=== PATIENT | male | born 1975 | race Caucasian/White ===

== ENCOUNTER 2016-11-07 18:39 | Emergency (ER) | payer MEDICAID ==
[2016-11-07 20:05] VITALS: BP 155/82
--- NOTE | 2016-11-07 20:17 | UC ---
UC General HPI - HPI Summary HPI Summary: Pt presents with c/o sudden onset of fever and loose stools. Pt reports that he thinks he had a fever yesterday and then had 1-2 episodes of loose stols over the last 24 hours. pt does not have a fever at time of exam. - History of Current Complaint Chief Complaint: UCGeneralIllness Stated Complaint: FEVER Time Seen by Provider: 11/07/16 20:12 Hx Obtained From: Patient Onset/Duration: Sudden Onset, Lasting Hours Timing: Constant Onset Severity: Mild Current Severity: None Associated Signs & Symptoms: Positive: Diarrhea - 2 episodes in the last 24 hours, Fever - unsure temperature does not have thermometer - Allergy/Home Medications Allergies/Adverse Reactions: Allergies Allergy/AdvReac Type Severity Reaction Status Date / Time Calcium Chloride Allergy Hives Verified 11/07/16 19:56 [From Caphosol] Diphenhydramine Allergy Rash Verified 03/08/15 13:36 [From Benadryl] Penicillins Allergy Rash Verified 03/08/15 13:36 Sodium Chloride Allergy Hives Verified 11/07/16 19:56 [From Caphosol] Sodium Phosphate Allergy Hives Verified 11/07/16 19:56 [From Caphosol] Home Medications: Home Medications Diltiazem HCl 120 mg PO SEE INSTRUCTIONS 11/07/16 [History Confirmed 11/07/16] Levothyroxine TAB* [Synthroid TAB*] 88 mcg PO DAILY 11/07/16 [History Confirmed 11/07/16] Rivaroxaban TAB(*) [Xarelto 10 mg (*)] 10 mg PO DAILY 11/07/16 [History Confirmed 11/07/16] PMH/Surg Hx/FS Hx/Imm Hx Previously Healthy: Yes Endocrine History Of: Reports: Thyroid Disease Cardiovascular History Of: Reports: Cardiac Disorders, Hypertension - Surgical History Surgical History: Yes Surgery Procedure, Year, and Place: HERNIA REPAIR. [facility] - Family History Known Family History: Positive: Other - positive [facility] for URI - Social History Alcohol Use: None Substance Use Type: None Smoking Status (MU): Former Smoker Review of Systems Constitutional: Fever - resolved Skin: Negative Eyes: Negative ENT: Negative Respiratory: Negative Cardiovascular: Negative Gastrointestinal: Diarrhea Genitourinary: Negative Motor: Negative Neurovascular: Negative Musculoskeletal: Negative Neurological: Negative Psychological: Negative All Other Systems Reviewed And Are Negative: Yes Physical Exam Triage Information Reviewed: Yes Appearance: Well-Appearing, Obese Vital Signs: Initial Vital Signs Temp 97.6 F 11/07/16 20:03 Pulse 63 11/07/16 20:03 Resp 20 11/07/16 20:03 BP 155/82 11/07/16 20:03 Pulse Ox 99 11/07/16 20:03 Eye Exam: Normal Respiratory Exam: Normal Cardiovascular Exam: Normal Abdominal Exam: Other Abdomen Description: Positive: Nontender Musculoskeletal Exam: Normal Neurological Exam: Normal Psychological Exam: Normal Skin Exam: Normal Course/Dx - Differential Dx - Multi-Symptom Provider Diagnoses: acute diarrhea. fever- resolved Discharge - Discharge Plan Condition: Stable Disposition: HOME Patient Education Materials: Acute Diarrhea (ED) Referrals: Quin Porter PA [Physician Household Chores] - 2 Days (Please follow up with your PCP as needed or return to clinic) Non Staff,Doctor [Primary Care Provider] - Additional Instructions: Please follow up with your PCP regarding the elevated Blood pressure at today's visit.
== END 2016-11-07 20:40 | disposition home or self-care (01) ==
LOC: UCCORT 18:39
DX: R19.7 Diarrhea, unspecified (principal); E07.9 Disorder of thyroid, unspecified; I10 Essential (primary) hypertension; Z79.01 Long term (current) use of anticoagulants; Z87.891 Personal history of nicotine dependence; E66.9 Obesity, unspecified; Z88.0 Allergy status to penicillin; Z88.8 Allergy status to other drugs, medicaments and biological substances
CPT/HCPCS: 99211; G0463

== ENCOUNTER 2016-11-22 08:58 | Emergency (ER) | payer MEDICARE, MEDICAID ==
[2016-11-22 09:35] VITALS: BP 146/82
--- NOTE | 2016-11-22 09:41 | UC ---
Throat Pain/Nasal Janusz HPI - HPI Summary HPI Summary: 41 yr old male with a fib presents with nasal congestion, sinus pressure, sore throat for 3 days. He states his head congestion is worsening each day. He states he may have had fever and chills last evening. Denies CP, palpitations, SOB, chest pressure. - History of Current Complaint Stated Complaint: FEVER,SINUS Time Seen by Provider: 11/22/16 09:31 Hx Obtained From: Patient Onset/Duration: Gradual Onset - Allergies/Home Medications Allergies/Adverse Reactions: Allergies Allergy/AdvReac Type Severity Reaction Status Date / Time Calcium Chloride Allergy Hives Verified 11/22/16 09:36 [From Caphosol] Diphenhydramine Allergy Rash Verified 11/22/16 09:36 [From Benadryl] Penicillins Allergy Rash Verified 11/22/16 09:36 Sodium Chloride Allergy Hives Verified 11/22/16 09:36 [From Caphosol] Sodium Phosphate Allergy Hives Verified 11/22/16 09:36 [From Caphosol] PMH/Surg Hx/FS Hx/Imm Hx Previously Healthy: Yes Endocrine History Of: Reports: Thyroid Disease Cardiovascular History Of: Reports: Cardiac Disorders, Hypertension Respiratory History Of: Denies: COPD GI/ History Of: Denies: Gastroesophageal Reflux Neurological History Of: Denies: TIA - Surgical History Surgical History: Yes Surgery Procedure, Year, and Place: HERNIA REPAIR. [facility]Y - Family History Known Family History: Positive: Other - positive [facility] for URI - Social History Occupation: Employed Full-time Lives: With Family Alcohol Use: None Substance Use Type: None Smoking Status (MU): Former Smoker Review of Systems Constitutional: Fatigue Skin: Negative Eyes: Negative ENT: Ear Ache, Nasal Discharge Respiratory: Negative Cardiovascular: Negative Gastrointestinal: Negative Genitourinary: Negative Motor: Negative Neurovascular: Negative Musculoskeletal: Negative Neurological: Negative Psychological: Negative All Other Systems Reviewed And Are Negative: Yes Physical Exam Triage Information Reviewed: Yes Appearance: Well-Appearing, No Pain Distress, Well-Nourished Vital Signs Reviewed: Yes Eye Exam: Normal ENT Exam: Normal ENT: Positive: Nasal congestion, Nasal drainage, TMs normal, Other: - bilateral frontal sinus tenderness to palpation. Negative: Tonsillar swelling, Tonsillar exudate Dental Exam: Normal Neck exam: Normal Neck: Positive: 1 Respiratory Exam: Normal Cardiovascular Exam: Normal Cardiovascular: Positive: No Murmur, Other: - irreg irreg Abdominal Exam: Normal Musculoskeletal Exam: Normal Neurological Exam: Normal Psychological Exam: Normal Skin Exam: Normal Throat Pain/Nasal Course/Dx - Differential Dx/Diagnosis Differential Diagnosis/HQI/PQRI: Sinusitis Provider Diagnoses: Sinusitis Discharge - Discharge Plan Condition: Good Disposition: HOME Prescriptions: Cefdinir [Cefdinir 300 MG CAP] 300 mg PO BID #20 cap Patient Education Materials: Sinusitis (ED) Referrals: Quin Porter PA [Primary Care Provider] - 3 Days Additional Instructions: WE DISCUSSED YOU LIKELY HAVE A VIRAL SINUS INFECTION. IT TAKES TIME TO GET BETTER. IF YOUR SYMPTOMS PERSIST OR WORSEN OVER THE NEXT 2-3 DAYS THEN AT THAT TIME YOU MAY START THE ANTIBIOTIC THAT WE PRESCRIBED.
== END 2016-11-22 10:00 | disposition home or self-care (01) ==
LOC: UCCORT 08:58
DX: J32.9 Chronic sinusitis, unspecified (principal); I48.91 Unspecified atrial fibrillation; I10 Essential (primary) hypertension; Z87.891 Personal history of nicotine dependence; Z88.0 Allergy status to penicillin
CPT/HCPCS: 99212; G0463

== ENCOUNTER 2017-04-13 19:18 | Emergency (ER) | payer MEDICARE, MEDICAID ==
--- NOTE | 2017-04-13 19:32 | UC ---
Back Pain HPI - HPI Summary HPI Summary: 41 YEAR OLD MALE PRESENTS WITH COMPLAINS OF LOWER BACK PAIN. - History of Current Complaint Stated Complaint: BACK PAIN Time Seen by Provider: 04/13/17 19:29 Hx Obtained From: Patient Onset/Duration: Gradual Onset, Lasting Weeks Timing: Intermittent Severity Initially: Moderate Severity Currently: Moderate Pain Scale Used: 0-10 Numeric - 7 Character: Sharp Aggravating: Movement, Lifting, Bending Alleviating: Rest - Risk Factors AAA Risk Factors: Negative TAD Risk Factors: Negative - Allergies/Home Medications Allergies/Adverse Reactions: Allergies Allergy/AdvReac Type Severity Reaction Status Date / Time Calcium Chloride Allergy Hives Verified 04/13/17 19:38 [From Caphosol] Diphenhydramine Allergy Rash Verified 04/13/17 19:38 [From Benadryl] Penicillins Allergy Rash Verified 04/13/17 19:38 Sodium Chloride Allergy Hives Verified 04/13/17 19:38 [From Caphosol] Sodium Phosphate Allergy Hives Verified 04/13/17 19:38 [From Caphosol] Home Medications: Home Medications Oxybutynin TAB* [Ditropan TAB*] 5 mg PO DAILY 04/13/17 [History Confirmed ] Sertraline* [Zoloft*] 25 mg PO DAILY 04/13/17 [History Confirmed 04/13/17] Valsartan TAB* [Diovan TAB*] 40 mg PO DAILY 04/13/17 [History Confirmed 04/13/17 ] PMH/Surg Hx/FS Hx/Imm Hx Previously Healthy: Yes - Surgical History Surgical History: Yes Surgery Procedure, Year, and Place: HERNIA REPAIR. [facility] - Family History Known Family History: Positive: Other - positive [facility] for URI - Social History Alcohol Use: None Substance Use Type: None Smoking Status (MU): Former Smoker Review of Systems Constitutional: Negative Skin: Negative Eyes: Negative ENT: Negative Respiratory: Negative Cardiovascular: Negative Gastrointestinal: Negative Genitourinary: Negative Motor: Negative Neurovascular: Negative Musculoskeletal: Other: - LOWE BACK PAIN Neurological: Negative Psychological: Negative All Other Systems Reviewed And Are Negative: Yes Physical Exam Triage Information Reviewed: Yes Appearance: No Pain Distress Vital Signs Reviewed: Yes Eye Exam: Normal ENT Exam: Normal Dental Exam: Normal Neck exam: Normal Neck: Positive: 1 Respiratory Exam: Normal Cardiovascular Exam: Normal Abdominal Exam: Normal Musculoskeletal: Positive: Other: - LOW BACK PAIN Neurological Exam: Normal Psychological Exam: Normal Skin Exam: Normal Back Pain Course/Dx - Differential Dx/Diagnosis Provider Diagnoses: LOW PARASPINAL LUMBAR PAIN Discharge - Discharge Plan Condition: Stable Disposition: HOME Prescriptions: Acetaminophen [Tylenol] 325 mg PO Q6H PRN #100 cap PRN Reason: Pain Cyclobenzaprine HCl [Flexeril 5 mg (NF)] 5 mg PO BID PRN #30 tab PRN Reason: Spasms - Back Patient Education Materials: Low Back Strain (ED), Acute Low Back Pain (ED) Referrals: Gabriele Jamil MD [Medical Doctor] - Quin Porter PA [Primary Care Provider] -
[2017-04-13 19:38] VITALS: BP 124/54
--- NOTE | 2017-04-13 20:19 | RAD ---
Indication: Low back pain. 5 views of the lumbar spine demonstrates disc space narrowing at L2-L3 with endplate changes. No fractures identified. IMPRESSION: Degenerative disc disease at L2-L3 without compression fracture.
[2017-04-13] MEDS ORDERED: Acetaminophen TAB* 325 MG PO ONE (20:33)
== END 2017-04-13 20:39 | disposition home or self-care (01) ==
LOC: UCCORT 19:18
DX: M54.2 Cervicalgia (principal); M51.37 Other intervertebral disc degeneration, lumbosacral region; Z87.891 Personal history of nicotine dependence
CPT/HCPCS: 72110; 99212; A9270-GY; G0463

== ENCOUNTER 2017-10-04 15:22 | Emergency (ER) | payer MEDICARE, MEDICAID ==
[2017-10-04 15:49] VITALS: BP 162/99
--- NOTE | 2017-10-04 15:58 | UC ---
Skin Complaint HPI - HPI Summary HPI Summary: skin rash right lower abdominal fold x 1 day + area is red, itchy no fever, no chills - History of Current Complaint Chief Complaint: UCSkin Time Seen by Provider: 10/04/17 15:35 Stated Complaint: SKIN COMPLAINT Hx Obtained From: Patient Onset/Duration: Gradual Onset, Lasting Days - 1, Still Present Timing: Constant Onset Severity: Moderate Current Severity: Moderate Pain Intensity: 0 Location: Discrete - right lower abdominal fold Character: Pruritus, Redness Aggravating Factor(s): Nothing Alleviating Factor(s): Nothing Associated Signs & Symptoms: Negative: Nausea, Vomiting, Numbness, Fever, Chills , Chest Pain, Tenderness, Red Streaks - Allergy/Home Medications Allergies/Adverse Reactions: Allergies Allergy/AdvReac Type Severity Reaction Status Date / Time diphenhydramine Allergy Rash Verified 10/04/17 15:37 [From Benadryl] Penicillins Allergy Rash Verified 10/04/17 15:37 saliva substitute Allergy Hives Verified 10/04/17 15:37 combination no.2 [From Caphosol] Home Medications: Home Medications Acetaminophen [Extra Strength Non-Aspirin] 500 mg PO Q6H PRN 10/04/17 [History Confirmed 10/04/17] Cholecalciferol (Vitamin D3) [D3] 1 tab PO DAILY 10/04/17 [History Confirmed ] Cyclobenzaprine HCl [Flexeril 5 mg (NF)] 5 mg PO Q8H PRN 10/04/17 [History Confirmed 10/04/17] Sertraline* [Zoloft*] 25 mg PO DAILY 10/04/17 [History Confirmed 10/04/17] Review of Systems Constitutional: Negative Skin: Rash Eyes: Negative ENT: Negative Respiratory: Negative Cardiovascular: Negative Gastrointestinal: Negative Is Patient Immunocompromised?: No All Other Systems Reviewed And Are Negative: Yes PMH/Surg Hx/FS Hx/Imm Hx Cardiovascular History: Hypertension, Atrial Fibrillation - Surgical History Surgical History: Yes Surgery Procedure, Year, and Place: HERNIA REPAIR. [facility] - Family History Known Family History: Positive: Hypertension, Other - positive [facility] for URI - Social History Alcohol Use: Rare Substance Use Type: None Smoking Status (MU): Former Smoker When Did the Patient Quit Smoking/Using Tobacco: 2013 Physical Exam Triage Information Reviewed: Yes Appearance: Well-Appearing, No Pain Distress, Obese Vital Signs: Initial Vital Signs Temp 97.9 F 10/04/17 15:44 Pulse 78 10/04/17 15:44 Resp 18 10/04/17 15:44 BP 162/99 10/04/17 15:44 Pulse Ox 99 10/04/17 15:44 Vital Signs Reviewed: Yes Eye Exam: Normal Eyes: Positive: Conjunctiva Clear ENT: Positive: Normal ENT inspection, Hearing grossly normal, Pharynx normal Neck: Positive: Supple, Nontender, No Lymphadenopathy Respiratory: Positive: Chest non-tender, Lungs clear, Normal breath sounds, No respiratory distress Cardiovascular: Positive: RRR, No Murmur, Pulses Normal Skin: Positive: rashes - macular / erythema right lower abdominal fold mild tenderness, no discharge Course/Dx - Diagnoses Provider Diagnoses: skin yeast infection Discharge - Discharge Plan Condition: Stable Disposition: HOME Prescriptions: Ketoconazole 2 % CREAM (NF) [Nizoral 2% CREAM (NF)] 1 applic TOPICAL BID #60 gm Patient Education Materials: Skin Yeast Infection (ED) Referrals: Non Staff,Doctor [Primary Care Provider] - 7 Days
== END 2017-10-04 16:01 | disposition home or self-care (01) ==
LOC: UCCORT 15:22
DX: B37.2 Candidiasis of skin and nail (principal); I10 Essential (primary) hypertension; Z87.891 Personal history of nicotine dependence
CPT/HCPCS: 99212; G0463

== ENCOUNTER 2018-01-07 18:07 | Emergency (ER) | payer MEDICARE, MEDICAID ==
--- OUTSIDE RECORDS SUMMARY | 2018-01-07 18:18 | XMS REPORT ---
:1975 External Reference #:[id number] Author Organization [facility] Address [address], [address] [place] [address] Phone [phone] Care Team Providers Name Role Phone Quin Porter RPAC Care Team Information Speech And Language Specialist Unavailable Quin Porter RPAC Primary Care Physician Unavailable Payers Type Date Identification Numbers Payment Provider Subscriber Medicare Primary Policy Number: [id number] Medicare Scott Costello PayID: [id number] [address] [place] [address] Medicaid Policy Number: [id number] Medicaid Scott Costello PayID: [id number] [address] [place] [address] Problems Date Description Provider Status Onset: 03/05/2015 Atrial fibrillation Akosua Eubanks M.D. Active Note: permanent Onset: 07/15/2016 Left atrial enlargement ALYSON Grier Active Onset: 03/05/2015 Dyspnea Akosua Eubanks M.D. Active Onset: 03/05/2015 Extreme obesity with alveolar Akosua Eubanks M.D. Active hypoventilation Onset: 03/26/2015 Chronic obstructive lung disease Paradise High PA-C Active Note: O2 2-4L with c-pap Onset: 03/26/2015 Anxiety state Paradise High PA-C Active Note: Depression Onset: 03/26/2015 Seborrheic dermatitis Paradise High PA-C Active Onset: 03/26/2015 Obstructive sleep apnea syndrome Paradise High PA-C Active Note: BiPAP Onset: 03/26/2015 Gastroparesis syndrome Paradise High PA-C Active Note: study 12/2012 Onset: 03/26/2015 History of thromboembolism of vein KENAN Pastor Active Note: (L)UE DVT 2011 after a PICC Onset: 03/26/2015 Hypothyroidism Paradise High PA-C Active Onset: 03/26/2015 Gastroesophageal reflux disease Paradise High PA-C Active Note: upper to D3 (Bx x1) 2012 Onset: 03/26/2015 Morbid obesity Paradise High PA-C Active Onset: 04/16/2015 Degeneration of lumbar Quin Porter [facility] Active intervertebral disc Note: L2-L3 Onset: 06/20/2015 Hypercoagulability state [facility] Active Note: 2 thrombotic episodes > LUE & PE Onset: 03/10/2016 Degenerative joint disease involving Quin Porter [facility] Active multiple joints Note: ankle,knee,hip Onset: 05/15/2016 Gingivitis Quin Porter [facility] Active Onset: 07/15/2016 H/O: pulmonary embolus [facility] Active Note: 2013 while recovering from leg fx Onset: 05/31/2017 Hernia of anterior abdominal wall Quin [facility] Active Note: large, surgery under consideration Onset: 11/01/2017 Essential hypertension Bonifacio Ferreira MD Active Onset: 11/01/2017 Persistent atrial fibrillation Bonifacio Ferreira MD Active Onset: 12/02/2017 Body mass index 40+ - severely obese Bonifacio Peguero MD Active Family History Date Family Member(s) Problem(s) Comments General Non Contributory Father CAD Mother Asthma Grandfather Stroke Grandfather Heart Attack Uncle Diabetes Social History Type Date Description Comments Marital Status Lives With 02/2015 [facility] Lives With room mate Diet Patient is on a low carb diet 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 Cigarette Use 1995 Former Cigarette Smoker X 1 YEAR Smokeless Tobacco Never Used Smokeless Tobacco ETOH Use Rarely consumes alcohol Smoking Patient is a former smoker QUIT 1995 Recreational Drug Use Denies Drug Use Daily Caffeine Current Caffeine User 2 -3 cups coffee daily 2-3 glasses ice tea daily Exercise Type/Frequency Exercises regularly Walks daily for weight loss Allergies, Adverse Reactions, Alerts Date Description Reaction Status Severity Comments 01/05/2014 Penicillins rash active hives 01/05/2014 Diphenhydramine rash active hives 09/06/2012 Cefazolin Sodium active Medications Medication Date Status Form Strength Qnty SIG Indications Ordering Provider Elocon 01/04 Active Cream 0.1% 50gm Thin layer S50.861A to insect David, bites tid M.D. Bipap Machine 12/20 Active 1units BiPAP/Bile patsy Hernandez, Machine M.D. replacemen t, auto adjust [16-10cm], heated/hum idified, with supplies Cyclobenzaprine 08/27 Active Tablets 10mg 60tabs take 1 Frandy HCL tablet Hernandez, every 8 M.D. hours for muscle spasm as needed, may use 2 tabs every night at bedtime Loratadine 07/19 Active Tablets 10mg 30tabs take one J20.9 tablet by Hernandez, mouth M.D. every day as needed for congestion /allergies Hydrocortisone 03/30 Active Cream 2.5% 30gm thin layer B37.9 to rash Hernandez, three-four M.D. times a day for itchy rash Vitamin D3 07/24 Active Tablets 1000Unit 90tabs Take One Tablet By Hernandez, Mouth M.D. Every Day Thera-M 03/10 Active Tablets 90tabs take one Frandy tablet by Hernandez, mouth M.D. every day Valsartan 12/02 Active Tablets 160mg 90tabs take one I10 Frandy tablet by Hernandez, mouth M.D. every morning with diltiazem Oxybutynin 09/13 Active Tablets 5mg 90tabs take one N39.42 Frandy Chloride ER /2015 ER 24HR tablet by Hernandez, mouth M.D. every day Acetaminophen 04/10 Active Tablets 500mg 60tabs 1-2 tabs Frandy Extra Strength /2014 by mouth Hernandez, every 6 M.D. hours as needed for pain ::: max dose is 6 tabs in 24 hours Xarelto 04/01 Active Tablets 20mg 90tabs 1 by mouth Frandy every Hernandez, evening M.D. with dinner Diltiazem HCL 02/16 Active Tablets 120mg 90tabs take two Frandy tablets by David, mouth M.D. every morning and 1 tablet by mouth every evening Hydrochlorothiazi Active Capsules 12.5mg 90caps 1 cap by Frandy mouth David, every in M.D. the morning Sertraline HCL Active Tablets 100mg 90tabs 1 by mouth Frandy every day Dviya Hernandez Levothyroxine Active Tablets 75mcg 90tabs take one Frandy Sodium tablet by David, mouth M.D. every day Sulfamethoxazole/ 07/19 Hx Tablets 800-160mg 20tabs take one 0.9 [facility] Trimethoprim tablet by David, - mouth M.D. 08/17 twice a day with food Benzonatate 07/19 Hx Capsules 200mg 30caps 1 cap by 0.9 Frandy mouth David, - three M.D. 08/27 times a day as needed cough Robitussin Chest 07/19 Hx Syrup 100mg/5ML 237ml 10 ml po q J20.9 Frandy Congestion 4 hr for David, - cough M.D. 08/27 Cyclobenzaprine 04/12 Hx Tablets 5mg take one tablet by David, - mouth at M.D. 08/27. Nystatin 03/30 Hx Cream [id number] 30gm thin layer B37.9 t/GM to David, - affected M.D. 07/19 area times a day Elocon 12/14 Hx Cream 0.1% 50gm Thin layer to insect David, bites tid M.D. Enoxaparin Sodium 07/15 Hx Solution 120mg/0.8 2.4ml 120mg sq q I48.1 Ryan Wright /2015 ML day on Leonel MERCHANT - 07/30, 08/04 07/31, 08/01/16 C-Pap Supplies 01/14 Hx Tubing, G47.33 Ryan Wright /2015 hose, and Leonel MERCHANT - mask For 04/24 nightly /2017 use Diltiazem HCL CD 09/13 Hx Caps ER 360mg 30caps 1 cap by I10 Ryan Wright /2015 24HR mouth Leonel MERCHANT - every day 09/13 Aripiprazole 08/27 Hx Tablets 5mg 30tabs 1 tab Ryan Wright /2015 every day Leonel MERCHANT Multivital 08/21 Hx Tablets 90tabs 1 by mouth Ryan Wright every day Leonel MERCHANT - 05/15 Robitussin DM 06/20 Hx Syrup 100-10mg/ 237ml 2 tsp by R05 Ryan Wright /2014 5ML mouth Leonel MERCHANT - every 4 09/13 hours as needed Sudafed 06/20 Hx Tablets 30mg 60tabs 1-2 tabs J06.9 Ryan Wright by mouth Leonel MERCHANT - every 4 04/24 hours as needed nasal congestion Vitamin D3 05/10 Hx Tablets 1000Unit 90tabs Take One Ryan Wright Tablet By Leonel MERCHANT - Mouth 05/15 Elocon 04/16 Hx Cream 0.1% 45gm Thin layer 698.8 Ryan Wright to itchy Leonel MERCHANT - rash bid 09/15 Folic Acid 04/15 Hx Tablets 1mg 90tabs 1 by mouth Ryan Wright every day Leonel MERCHANT - 08/21 C-Pap Supplies 04/11 Hx QS for Ryan Wright nightly Leonel DO - use ... 04/25 dx: 278. C-Pap Supplies 04/11 Hx For Ryan Wright nightly Leonel DO - use ::: 06/20 dx: 278. C-Pap Supplies 04/06 Hx OneSet for Ryan Wright nightly Leonel DO - use ::: 04/26 dx: 278. Warfarin Sodium 03/29 Hx Tablets 4mg 30tabs 1 by mouth Ryan Wright every day Leonel MERCHANT - 04/03 Zyrtec Allergy 03/14 Hx Capsules 10mg 30caps 1 cap (or 919.4 Ryan Wright tab) by Leonel MERCHANT - mouth 09/15 evening for itching Hydrocortisone 03/14 Hx Lotion 1% 114gm Thin layer Ryan Wright to rash q Leonel DO - 4-6 hrs 04/16 Cyproheptadine 03/11 Hx Tablets 4mg 30tabs 1 tab by 919.4 Ryan Wrgiht mouth Leonel DO - three 03/14 times a day for itching Abilify 02/16 Hx Tablets 5mg 30tabs 1 tab Ryan Wright /2014 every day Leonel MERCHANT - 08/27 Zoloft 00/ Hx Tablets 1 by mouth Unknown /0000 every day - 03/04 Aspirin Ec 00 Hx Tablets 325mg 1 by mouth Unknown /0000 DR every day - 04/03 Vitamin B-12 00 Hx Tablets 1 by mouth Unknown /0000 Sub every day - 04/24 Nyamyc Hx Powder [id number] [place], /0000 t/GM Arun Alonso, DO 04/16 Warfarin Sodium Hx Tablets 1mg [place], /0000 Arun Alonso, DO 03/04 Warfarin Sodium 00 Hx Tablets 3mg [place], /0000 Arun Alonso, DO 03/04 Warfarin Sodium 0000 Hx Tablets 9mg since [place], /0000 07/2014 Arun Alonso, DO 03/29 Tamiflu Hx Capsules 75mg [place], /0000 Arun Alonso, DO 03/04 Ibuprofen Hx Tablets 600mg Robenstei /0000 Jazz coello, - DO 03/11 Prednisone 00 Hx Tablets 20mg 1 po q Renetta, , cynthia Banks, - dose 03/12 Sulfamethoxazole/ 0000 Hx Tablets 800-160mg 1 by mouth Unknown Trimethoprim DS /0000 twice a - day 05/09 Mapap 00 Hx Tablets 325mg Take One Unknown /0000 Tablet By - Mouth 04/24 Every Hours as Needed For Pain Immunizations CPT Code Status Date Vaccine Lot # [id number] Given 04/21/2017 Influenza Virus Vaccine, Quadrivalent, Slit Virus, Im Use [id number] Given 05/15/2016 Influenza Vaccine (Fluzone) Age 3 And Older [id number] Given 06/20/2015 Influenza Vaccine (Fluzone) Age 3 And Older [id number] Vital Signs Date Vital Result Comment 01/04/2018 BP Systolic Sitting Left Arm 114 mmHg BP Diastolic Sitting Left Arm 74 mmHg Heart Rate 74 /min Respiratory Rate 18 /min Height 71.50 inches 5'11.50" [place] body weight in kilograms 79 O2 % BldC Oximetry 98 % ra 12/20/2017 BP Systolic 138 mmHg BP Diastolic 80 mmHg Height 71.50 inches 5'11.50" Weight 501.00 lb BMI (Body Mass Index) 68.9 kg/m2 BSA (Body Surface Area) 3.13 m2 [place] body weight in kilograms 79 12/02/2017 BP Systolic Sitting Left Arm 140 mmHg BP Diastolic Sitting Left Arm 80 mmHg Heart Rate 70 /min Respiratory Rate 18 /min Height 71.50 inches 5'11.50" Weight 498.00 lb BMI (Body Mass Index) 68.5 kg/m2 BSA (Body Surface Area) 3.12 m2 [place] body weight in kilograms 79 09/23/2017 BP Systolic Sitting Right Arm 118 mmHg (extra large cuff) BP Diastolic Sitting Right Arm 80 mmHg (extra large cuff) Heart Rate 71 /min Height 71.50 inches 5'11.50" Weight 492.00 lb BMI (Body Mass Index) 67.7 kg/m2 BSA (Body Surface Area) 3.11 m2 [place] body weight in kilograms 79 O2 % BldC Oximetry 97 % ra 07/19/2017 BP Systolic 144 mmHg BP Diastolic 90 mmHg Body Temperature 96.7 F Heart Rate 61 /min Respiratory Rate 18 /min Height 71.50 inches 5'11.50" Weight 477.00 lb BMI (Body Mass Index) 65.6 kg/m2 BSA (Body Surface Area) 3.07 m2 [place] body weight in kilograms 79 O2 % BldC Oximetry 94 % 05/31/2017 BP Systolic Sitting Right Arm 118 mmHg BP Diastolic Sitting Right Arm 68 mmHg Heart Rate 56 /min Respiratory Rate 24 /min Height 71.50 inches 5'11.50" Weight 476.00 lb BMI (Body Mass Index) 65.5 kg/m2 BSA (Body Surface Area) 3.06 m2 [place] body weight in kilograms 79 O2 % BldC Oximetry 98 % ra 04/21/2017 BP Systolic Sitting Left Arm 108 mmHg BP Diastolic Sitting Left Arm 62 mmHg Heart Rate 59 /min Height 71.50 inches 5'11.50" Weight 456.00 lb BMI (Body Mass Index) 62.7 kg/m2 BSA (Body Surface Area) 3.01 m2 [place] body weight in kilograms 79 O2 % BldC Oximetry 93 % ra 03/30/2017 BP Systolic Sitting Right Arm 122 mmHg BP Diastolic Sitting Right Arm 76 mmHg Heart Rate 64 /min Respiratory Rate 24 /min Height 71.50 inches 5'11.50" Weight 454.00 lb BMI (Body Mass Index) 62.4 kg/m2 BSA (Body Surface Area) 3.00 m2 [place] body weight in kilograms 79 O2 % BldC Oximetry 98 % ra 01/29/2017 BP Systolic Sitting Right Arm 140 mmHg BP Diastolic Sitting Right Arm 80 mmHg Height 71.50 inches 5'11.50" Weight 464.25 lb BMI (Body Mass Index) 63.8 kg/m2 BSA (Body Surface Area) 3.03 m2 [place] body weight in kilograms 79 09/15/2016 BP Systolic Sitting Right Arm 124 mmHg BP Diastolic Sitting Right Arm 76 mmHg Height 71.50 inches 5'11.50" Weight 462.12 lb BMI (Body Mass Index) 63.5 kg/m2 BSA (Body Surface Area) 3.03 m2 07/15/2016 BP Systolic Sitting Right Arm 136 mmHg BP Diastolic Sitting Right Arm 70 mmHg Heart Rate 94 /min Respiratory Rate 20 /min Height 71.50 inches 5'11.50" Weight 475.00 lb BMI (Body Mass Index) 65.3 kg/m2 BSA (Body Surface Area) 3.06 m2 O2 % BldC Oximetry 97 % 06/26/2016 BP Systolic Sitting Right Arm 132 mmHg L wrist BP Diastolic Sitting Right Arm 74 mmHg L wrist Height 71.50 inches 5'11.50" Weight 475.38 lb BMI (Body Mass Index) 65.4 kg/m2 BSA (Body Surface Area) 3.06 m2 05/15/2016 BP Systolic Sitting Right Arm 134 mmHg L wrist BP Diastolic Sitting Right Arm 72 mmHg L wrist Height 71.50 inches 5'11.50" Weight 488.00 lb BMI (Body Mass Index) 67.1 kg/m2 BSA (Body Surface Area) 3.10 m2 03/02/2016 BP Systolic Sitting Right Arm 112 mmHg BP Diastolic Sitting Right Arm 68 mmHg Height 71.50 inches 5'11.50" Weight 500.31 lb BMI (Body Mass Index) 68.8 kg/m2 BSA (Body Surface Area) 3.13 m2 02/13/2016 BP Systolic 138 mmHg R wrist BP Diastolic 82 mmHg R wrist Height 71.50 inches 5'11.50" Weight 515.00 lb BMI (Body Mass Index) 70.8 kg/m2 BSA (Body Surface Area) 3.17 m2 12/03/2015 BP Systolic 140 mmHg Right Forearm BP Diastolic 96 mmHg Right Forearm Body Temperature 96.6 F Heart Rate 67 /min Respiratory Rate 20 /min Height 71.50 inches 5'11.50" O2 % BldC Oximetry 97 % 11/07/2015 BP Systolic 238 mmHg BP Diastolic 82 mmHg Height 71.50 inches 5'11.50" Weight 500.00 lb 500 + BMI (Body Mass Index) 68.8 kg/m2 BSA (Body Surface Area) 3.13 m2 09/13/2015 BP Systolic Sitting Left Arm 152 mmHg BP Diastolic Sitting Left Arm 82 mmHg Body Temperature 97.3 F Heart Rate 122 /min Height 71.50 inches 5'11.50" O2 % BldC Oximetry 97 % 06/20/2015 BP Systolic 118 mmHg BP Diastolic 72 mmHg Body Temperature 98.7 F Heart Rate 68 /min Height 71.50 inches 5'11.50" O2 % BldC Oximetry 96 % 04/16/2015 BP Systolic 122 mmHg BP Diastolic 68 mmHg Body Temperature 96.8 F Heart Rate 76 /min Respiratory Rate 22 /min Height 71.50 inches 5'11.50" Weight 500.00 lb BMI (Body Mass Index) 68.8 kg/m2 BSA (Body Surface Area) 3.13 m2 O2 % BldC Oximetry 94 % Ra 03/11/2015 BP Systolic 140 mmHg BP Diastolic 70 mmHg Height 71.50 inches 5'11.50" Weight 500.00 lb BMI (Body Mass Index) 68.8 kg/m2 BSA (Body Surface Area) 3.13 m2 03/05/2015 BP Systolic 122 mmHg BP Diastolic 72 mmHg Body Temperature 97.6 F Heart Rate 70 /min Height 71.50 inches 5'11.50" Weight 500.00 lb over 500 per patient BMI (Body Mass Index) 68.8 kg/m2 BSA (Body Surface Area) 3.13 m2 O2 % BldC Oximetry 91 % Ra Results Test Date Test Result H/L Range Note CBS W/Automated Diff 09/23/2017 White Blood Count 10.7 K/uL High 3.4-10.5 1 Red Blood Count 4.14 M/uL Low 4.20-5.80 1 Hemoglobin 13.9 gm/dL 12.8-17.0 1 Hematocrit 41.6 % 38.0-48.0 1 Mean Cell Volume 100.5 fl High 80.0-96.0 1 Mean Corpuscular HGB 33.6 pg High 27.0-33.0 1 Mean Corpuscular HGB Conc 33.4 g/dL 31.7-36.0 1 Platelet Count 269 K/uL 155-360 1 Red Cell Distri Width SD 44.9 fl 36-51 1 Red Cell Distri Width %CV 12.5 % 11.6-15.8 1 Mean Platelet Volume 11.6 fL High 6.6-10.6 1 Neut% 67.0 % 33.0-73.0 1 Lymph % 17.9 % Low 20.0-42.0 1 Jennings % 12.3 % High 0.0-10.0 1 Eo% 2.4 % 0.0-6.6 1 Bas% 0.4 % 0.0-1.1 1 Neut# 7.18 K/uL High 1.8-7.0 1 Lymph # 1.92 K/uL 1.0-4.0 1 Jennings # 1.32 K/uL High 0.0-0.8 1 Eos # 0.26 K/uL 0.0-0.5 1 Baso # 0.04 K/uL 0.0-0.1 1 Comprehensive Metabolic Panel 09/23/2017 Glucose 93 mg/dL 74-106 1 BUN 11 mg/dL 7-18 1 Creatinine 1.0 mg/dL 0.6-1.3 1 Glom Filtration Rate, Estimate >60 mL/min >60 1 If >60 mL/min >60 1, 2 BUN/Creat 11.0 ratio 1 Sodium 141 mmol/L 136-145 1 Potassium 3.9 mmol/L 3.5-5.1 1 Chloride 104 mmol/L 98-107 1 Carbon Dioxide 32 mmol/L 21-32 1 Anion Gap 5 mEq/L Low 8-16 1 Calcium 8.8 mg/dL 8.5-10.1 1 Total Protein 7.6 g/dL 6.4-8.2 1 Albumin 3.6 g/dL 3.4-5.0 1 Globulin 4.0 g/dL 1.9-4.3 1 Alb/Glob 0.9 ratio 1 Bilirubin,Total 0.5 mg/dL 0.2-1.0 1 Sgot/Ast 15 U/L 15-37 1 SGPT/Alt 23 U/L 12-78 1 Alkaline Phosphatase 115 U/L 45-117 1 Glycohemoglobin A1c 09/23/2017 Glycohemoglobin (A1c) 5.0 % 4.2-6.3 1, 3 eAG 97 mg/dL 1 Laboratory test 09/23/2017 Thyroid Stim Hormone 3.04 uIU/mL 0.30-4.20 1 finding Slide Review 09/23/2017 Slide Review . 1, 4 Serum or plasma 03/30/2017 Serum or plasma 3.9 3.4-5.0 albumin measurement albumin measurement (mass/volume) (mass/volume) Serum carbon dioxide 03/30/2017 Serum carbon dioxide 26 21-32 measurement measurement RDW RBC Auto-Rto 03/30/2017 RDW RBC Auto-Rto 13.3 11.6-15.8 RDW RBC Auto 03/30/2017 RDW RBC Auto 46.7 36-51 Potassium SerPl-sCnc 03/30/2017 Potassium SerPl-sCnc 3.8 3.5-5.1 Neutrophils/leuk NFr 03/30/2017 Neutrophils/leuk NFr 70.6 33.0-73.0 Bld Auto Bld Auto Neutrophils # Bld Auto 03/30/2017 Neutrophils # Bld Auto 6.72 1.8-7.0 Monocytes/leuk NFr Bld 03/30/2017 Monocytes/leuk NFr Bld 7.2 0.0-10.0 Auto Auto Lymphocytes/leuk NFr 03/30/2017 Lymphocytes/leuk NFr 19.7 Low 20.0-42.0 Bld Auto Bld Auto Globulin Ser Calc-mCnc 03/30/2017 Globulin Ser Calc-mCnc 4.0 1.9-4.3 Serum or plasma 03/30/2017 Serum or plasma 105 45-117 alkaline phosphatase alkaline phosphatase measurement ( measurement (enzymatic activity/volume) Serum or plasma 03/30/2017 Serum or plasma 19 15-37 aspartate aspartate aminotransferase aminotransferase measure measurement (enzymatic activity/volume) Serum or plasma 03/30/2017 Serum or plasma 8.9 8.5-10.1 calcium measurement calcium measurement (mass/volume) (mass/volume) Serum or plasma 03/30/2017 Serum or plasma 1.0 0.6-1.3 creatinine measurement creatinine measurement (mass/volum (mass/volume) Serum or plasma 03/30/2017 Serum or plasma 84 74-106 glucose measurement glucose measurement (mass/volume) (mass/volume) Serum or plasma 03/30/2017 Serum or plasma 7.9 6.4-8.2 protein measurement protein measurement (mass/volume) (mass/volume) Serum or plasma total 03/30/2017 Serum or plasma total 0.6 0.2-1.0 bilirubin measurement bilirubin measurement (mass/ (mass/volume) Serum or plasma urea 03/30/2017 Serum or plasma urea 12 7-18 nitrogen measurement nitrogen measurement (mass/vo (mass/volume) Serum sodium 03/30/2017 Serum sodium 139 136-145 measurement measurement WBC # Bld Auto 03/30/2017 WBC # Bld Auto 9.5 3.4-10.5 Comprehensive 03/30/2017 Glucose 84 mg/dL 74-106 5 Metabolic Panel BUN 12 mg/dL 7-18 5 Creatinine 1.0 mg/dL 0.6-1.3 5 Glom Filtration Rate, Estimate >60 mL/min >60 5 If >60 mL/min >60 5, 6 BUN/Creat 12.0 ratio 5 Sodium 139 mmol/L 136-145 5 Potassium 3.8 mmol/L 3.5-5.1 5 Chloride 105 mmol/L 98-107 5 Carbon Dioxide 26 mmol/L 21-32 5 Anion Gap 8 mEq/L 8-16 5 Calcium 8.9 mg/dL 8.5-10.1 5 Total Protein 7.9 g/dL 6.4-8.2 5 Albumin 3.9 g/dL 3.4-5.0 5 Globulin 4.0 g/dL 1.9-4.3 5 Alb/Glob 1.0 ratio 5 Bilirubin,Total 0.6 mg/dL 0.2-1.0 5 Sgot/Ast 19 U/L 15-37 5 SGPT/Alt 26 U/L 12-78 5 Alkaline Phosphatase 105 U/L 45-117 5 Laboratory test finding 03/30/2017 Thyroid Stim Hormone 2.90 uIU/mL 0.30- 4.20 5 CBS W/Automated Diff 03/30/2017 White Blood Count 9.5 K/uL 3.4-10.5 5 Red Blood Count 4.27 M/uL 4.20-5.80 5 Hemoglobin 14.4 gm/dL 12.8-17.0 5 Hematocrit 42.5 % 38.0-48.0 5 Mean Cell Volume 99.5 fl High 80.0-96.0 5 Mean Corpuscular HGB 33.7 pg High 27.0-33.0 5 Mean Corpuscular HGB Conc 33.9 g/dL 31.7-36.0 5 Platelet Count 246 K/uL 150-400 5 Red Cell Distri Width SD 46.7 fl 36-51 5 Red Cell Distri Width %CV 13.3 % 11.6-15.8 5 Mean Platelet Volume 12.0 fL High 6.6-10.6 5 Neut% 70.6 % 33.0-73.0 5 Lymph % 19.7 % Low 20.0-42.0 5 Jennings % 7.2 % 0.0-10.0 5 Eo% 2.0 % 0.0-6.6 5 Bas% 0.5 % 0.0-1.1 5 Neut# 6.72 K/uL 1.8-7.0 5 Lymph # 1.87 K/uL 1.0-4.0 5 Jennings # 0.68 K/uL 0.0-0.8 5 Eos # 0.19 K/uL 0.0-0.5 5 Baso # 0.05 K/uL 0.0-0.1 5 Alt SerPl-cCnc 03/30/2017 Alt SerPl-cCnc 26 12-78 Albumin/Glob SerPl 03/30/2017 Albumin/Glob SerPl 1.0 Anion Gap SerPl-sCnc 03/30/2017 Anion Gap SerPl-sCnc 8 8-16 Automated blood basophil 03/30/2017 Automated blood basophil 0.05 0.0- 0.1 count (count/volume) count (count/volume) Automated blood 03/30/2017 Automated blood 0.19 0.0-0.5 eosinophil count eosinophil count Automated blood 03/30/2017 Automated blood 42.5 38.0-48.0 hematocrit (volume hematocrit (volume fraction) fraction) Automated blood 03/30/2017 Automated blood 1.87 1.0-4.0 lymphocyte count lymphocyte count (number/volume) (number/volume) Automated blood platelet 03/30/2017 Automated blood platelet 246 150-400 count count Automated blood platelet 03/30/2017 Automated blood platelet 12.0 High 6.6 -10.6 mean volume measurement mean volume measurement Automated erythrocyte 03/30/2017 Automated erythrocyte 33.7 High 27.0- 33.0 mean corpuscular mean corpuscular hemoglobin hemoglobin (mass per erythrocyte) Automated erythrocyte 03/30/2017 Automated erythrocyte 33.9 31.7-36.0 mean corpuscular mean corpuscular hemoglobin hemoglobin concentration measurement (mass/volume) Automated erythrocyte 03/30/2017 Automated erythrocyte 99.5 High 80.0- 96.0 mean corpuscular volume mean corpuscular volume BUN/Creat SerPl 03/30/2017 BUN/Creat SerPl 12.0 Basophils/leuk NFr Bld 03/30/2017 Basophils/leuk NFr Bld 0.5 0.0-1.1 Auto Auto Blood erythrocytes 03/30/2017 Blood erythrocytes 4.27 4.20-5.80 automated count automated count (number/volume) (number/volume) Blood hemoglobin 03/30/2017 Blood hemoglobin 14.4 12.8-17.0 measurement measurement (mass/volume) (mass/volume) Blood monocytes 03/30/2017 Blood monocytes 0.68 0.0-0.8 automated count automated count (number/volume) (number/volume) Chloride SerPl-sCnc 03/30/2017 Chloride SerPl-sCnc 105 98-107 Eosinophil/leuk NFr Bld 03/30/2017 Eosinophil/leuk NFr Bld 2.0 0.0-6.6 Auto Auto Comprehensive Metabolic 01/29/2017 Glucose 82 mg/dL 74-106 7 Panel BUN 16 mg/dL 7-18 7 Creatinine 1.1 mg/dL 0.6-1.3 7 Glom Filtration Rate, Estimate >60 mL/min >60 7 If >60 mL/min >60 7, 8 BUN/Creat 14.5 ratio 7 Sodium 142 mmol/L 136-145 7 Potassium 3.8 mmol/L 3.5-5.1 7 Chloride 106 mmol/L 98-107 7 Carbon Dioxide 27 mmol/L 21-32 7 Anion Gap 9 mEq/L 8-16 7 Calcium 8.8 mg/dL 8.5-10.1 7 Total Protein 7.2 g/dL 6.4-8.2 7 Albumin 3.7 g/dL 3.4-5.0 7 Globulin 3.5 g/dL 1.9-4.3 7 Alb/Glob 1.1 ratio 7 Bilirubin,Total 0.4 mg/dL 0.2-1.0 7 Sgot/Ast 15 U/L 15-37 7 SGPT/Alt 28 U/L 12-78 7 Alkaline Phosphatase 98 U/L 45-117 7 LDL Cholesterol Profile 01/29/2017 Cholesterol 163 mg/dL <200 7, 9 Triglycerides 100 mg/dL <150 7, 10 HDL Cholesterol 53 mg/dL >40 7, 11 LDL-Cholesterol 90 mg/dL < 100 7, 12 CBS W/Automated Diff 01/29/2017 White Blood Count 9.1 K/uL 3.4-10.5 7 Red Blood Count 4.08 M/uL Low 4.20-5.80 7 Hemoglobin 14.0 gm/dL 12.8-17.0 7 Hematocrit 40.8 % 38.0-48.0 7 Mean Cell Volume 100.0 fl High 80.0-96.0 7 Mean Corpuscular HGB 34.3 pg High 27.0-33.0 7 Mean Corpuscular HGB Conc 34.3 g/dL 31.7-36.0 7 Platelet Count 254 K/uL 150-400 7 Red Cell Distri Width SD 45.9 fl 36-51 7 Red Cell Distri Width %CV 12.8 % 11.6-15.8 7 Mean Platelet Volume 11.9 fL High 6.6-10.6 7 Neut% 66.5 % 33.0-73.0 7 Lymph % 21.1 % 20.0-42.0 7 Jennings % 8.9 % 0.0-10.0 7 Eo% 2.8 % 0.0-6.6 7 Bas% 0.7 % 0.0-1.1 7 Neut# 6.04 K/uL 1.8-7.0 7 Lymph # 1.92 K/uL 1.0-4.0 7 Jennings # 0.81 K/uL High 0.0-0.8 7 Eos # 0.25 K/uL 0.0-0.5 7 Baso # 0.06 K/uL 0.0-0.1 7 Glycohemoglobin A1c 01/29/2017 Glycohemoglobin (A1c) 4.8 % 4.2-6.3 7, 13 eAG 91 mg/dL 7 MCHC RBC Auto-mCnc 07/15/2016 MCHC RBC Auto-mCnc 34.2 31.7-36.0 MCV RBC Auto 07/15/2016 MCV RBC Auto 100.4 High 80.0-96.0 Monocytes # Bld Auto 07/15/2016 Monocytes # Bld Auto 0.61 0.0-0.8 Monocytes/leuk NFr Bld 07/15/2016 Monocytes/leuk NFr Bld 7.0 0.0-10.0 Auto Auto Neutrophils/leuk NFr Bld 07/15/2016 Neutrophils/leuk NFr Bld 63.2 33.0- 73.0 Auto Auto PMV Bld Auto 07/15/2016 PMV Bld Auto 12.2 High 6.6-10.6 Platelet # Bld Auto 07/15/2016 Platelet # Bld Auto 247 150-400 Potassium SerPl-sCnc 07/15/2016 Potassium SerPl-sCnc 4.0 3.5-5.1 RBC # Bld Auto 07/15/2016 RBC # Bld Auto 4.63 4.20-5.80 RDW RBC Auto 07/15/2016 RDW RBC Auto 46.7 36-51 RDW RBC Auto-Rto 07/15/2016 RDW RBC Auto-Rto 12.9 11.6-15.8 Sodium SerPl-sCnc 07/15/2016 Sodium SerPl-sCnc 142 136-145 WBC # Bld Auto 07/15/2016 WBC # Bld Auto 8.8 3.4-10.5 BUN SerPl-mCnc 07/15/2016 BUN SerPl-mCnc 15 7-18 Anion Gap SerPl-sCnc 07/15/2016 Anion Gap SerPl-sCnc 8 8-16 Neutrophils # (Auto) 07/15/2016 Neutrophils # (Auto) 5.54 1.8-7.0 Lymphocytes # (Auto) 07/15/2016 Lymphocytes # (Auto) 2.43 1.8-7.0 Laboratory test finding 07/15/2016 BUN/Creatinine Ratio 12.5 Basophils # (Auto) 0.05 Low 0.1-0.2 Basophils (%) (Auto) 0.6 0.1-1.0 Blood Urea Nitrogen 15 7-18 Calcium Level 9.2 8.5-10.1 Carbon Dioxide Level 27 21-32 Chloride Level 107 98-107 Eosinophils # (Auto) 0.13 0.0-0.5 Eosinophils (%) (Auto) 1.5 0.0-5.0 Glucose Screen 84 74-106 Lymphocytes (%) (Auto) 27.7 17.0-56.0 Mean Corpuscular Hemoglobin 34.3 High 27.0-33.0 Mean Corpuscular Hemoglobin Concent 34.2 31.7-36.0 Mean Corpuscular Volume 100.4 High 80.0-96.0 Monocytes # (Auto) 0.61 0.0-0.8 Monocytes (%) (Auto) 7.0 0.0-10.0 Neutrophils (%) (Auto) 63.2 33.0-73.0 Potassium Level 4.0 3.5-5.1 RDW Coefficient of Variation 12.9 11.6-15.8 Red Cell Distribution Width 46.7 36-51 Sodium Level 142 136-145 Basic Metabolic Panel 07/15/2016 Glucose 84 mg/dL 74-106 14 BUN 15 mg/dL 7-18 14 Creatinine 1.2 mg/dL 0.6-1.3 14 Glom Filtration Rate, Estimate >60 mL/min >60 14 If >60 mL/min >60 14, 15 BUN/Creat 12.5 ratio 14 Sodium 142 mmol/L 136-145 14 Potassium 4.0 mmol/L 3.5-5.1 14 Chloride 107 mmol/L 98-107 14 Carbon Dioxide 27 mmol/L 21-32 14 Anion Gap 8 mEq/L 8-16 14 Calcium 9.2 mg/dL 8.5-10.1 14 CBS W/Automated Diff 07/15/2016 White Blood Count 8.8 K/uL 3.4-10.5 14 Red Blood Count 4.63 M/uL 4.20-5.80 14 Hemoglobin 15.9 gm/dL 12.8-17.0 14 Hematocrit 46.5 % 38.0-48.0 14 Mean Cell Volume 100.4 fl High 80.0-96.0 14 Mean Corpuscular HGB 34.3 pg High 27.0-33.0 14 Mean Corpuscular HGB Conc 34.2 g/dL 31.7-36.0 14 Platelet Count 247 K/uL 150-400 14 Red Cell Distri Width SD 46.7 fl 36-51 14 Red Cell Distri Width %CV 12.9 % 11.6-15.8 14 Mean Platelet Volume 12.2 fL High 6.6-10.6 14 Neut% 63.2 % 33.0-73.0 14 Lymph % 27.7 % 17.0-56.0 14 Jennings % 7.0 % 0.0-10.0 14 Eo% 1.5 % 0.0-5.0 14 Bas% 0.6 % 0.1-1.0 14 Neut# 5.54 K/uL 1.8-7.0 14 Lymph # 2.43 K/uL 1.8-7.0 14 Jennings # 0.61 K/uL 0.0-0.8 14 Eos # 0.13 K/uL 0.0-0.5 14 Baso # 0.05 K/uL Low 0.1-0.2 14 Basophils # Bld Auto 07/15/2016 Basophils # Bld Auto 0.05 Low 0.1-0.2 Basophils/leuk NFr Bld 07/15/2016 Basophils/leuk NFr Bld 0.6 0.1-1.0 Auto Auto Co2 SerPl-sCnc 07/15/2016 Co2 SerPl-sCnc 27 21-32 MCH RBC Qn Auto 07/15/2016 MCH RBC Qn Auto 34.3 High 27.0-33.0 Lymphocytes/leuk NFr 07/15/2016 Lymphocytes/leuk NFr 27.7 17.0-56.0 Bld Auto Bld Auto Hgb Bld-mCnc 07/15/2016 Hgb Bld-mCnc 15.9 12.8-17.0 Hct VFr Bld Auto 07/15/2016 Hct VFr Bld Auto 46.5 38.0-48.0 Glucose [mass/volume] 07/15/2016 Glucose [mass/volume] 84 74-106 in serum or plasma in serum or plasma Eosinophil/leuk NFr 07/15/2016 Eosinophil/leuk NFr 1.5 0.0-5.0 Bld Auto Bld Auto Eosinophil # Bld Auto 07/15/2016 Eosinophil # Bld Auto 0.13 0.0-0.5 Calcium SerPl-mCnc 07/15/2016 Calcium SerPl-mCnc 9.2 8.5-10.1 Chloride SerPl-sCnc 07/15/2016 Chloride SerPl-sCnc 107 98-107 Creat SerPl-mCnc 07/15/2016 Creat SerPl-mCnc 1.2 0.6-1.3 Free Thyroxine 06/26/2016 Free Thyroxine 1.21 0.76-1.46 Thyroid Stimulating 06/26/2016 Thyroid Stimulating 1.99 0.30-4.20 Hormone (TSH) Hormone (TSH) Laboratory test 06/26/2016 Thyroid Stim Hormone 1.99 uIU/mL 0.30-4.20 16 finding Free T4 1.21 ng/dL 0.76-1.46 16 Urine Screen 04/08/2016 Urine Color DK YELLOW Yellow 17 Urine Clarity CLEAR Clear 17 Urine Glucose - Dipstick NEGATIVE mg/dL Negative 17 Urine Bilirubin - Dipstick NEGATIVE Negative 17 Urine Ketone NEGATIVE mg/dL Negative 17 Urine Specific [place] 1.025 1.010-1.030 17 Urine Blood NEGATIVE Negative 17 Urine PH 6.0 Low 6.5-7.5 17 Urine Protein - Dipstick NEGATIVE mg/dL Negative 17 Urine Urobilinogen - Dipstick 0.2 E.U./dL 0.2-1.0 17 Urine Nitrite - Dipstick NEGATIVE Negative 17 Urine Leuk Esterase NEGATIVE Negative 17 Source: URINE, CLEAN CAT <SEE 17, 18 NOTE> Aspartate Amino Transf 04/08/2016 Aspartate Amino Transf (Ast/Sgot) 23 15 -37 (Ast/Sgot) Laboratory test finding 04/08/2016 Alanine Aminotransferase 34 12-78 (Alt/SGPT) Albumin/Globulin Ratio 1.1 Total Bilirubin 0.7 0.2-1.0 Laboratory test finding 04/08/2016 Lipase 81 U/L 73-393 17 Comprehensive Metabolic Panel 04/08/2016 Glucose 89 mg/dL 74-106 17 BUN 16 mg/dL 7-18 17 Creatinine 1.3 mg/dL 0.6-1.3 17 Glom Filtration Rate, Estimate >60 mL/min >60 17 If >60 mL/min >60 17, 19 BUN/Creat 12.3 ratio 17 Sodium 140 mmol/L 136-145 17 Potassium 4.1 mmol/L 3.5-5.1 17 Chloride 107 mmol/L 98-107 17 Carbon Dioxide 26 mmol/L 21-32 17 Anion Gap 7 mEq/L Low 8-16 17 Calcium 9.2 mg/dL 8.5-10.1 17 Total Protein 7.6 g/dL 6.4-8.2 17 Albumin 4.0 g/dL 3.4-5.0 17 Globulin 3.6 g/dL 1.9-4.3 17 Alb/Glob 1.1 ratio 17 Bilirubin,Total 0.7 mg/dL 0.2-1.0 17 Sgot/Ast 23 U/L 15-37 17 SGPT/Alt 34 U/L 12-78 17 Alkaline Phosphatase 87 U/L 45-117 17 CBS W/Automated Diff 04/08/2016 White Blood Count 8.5 K/uL 3.4-10.5 17 Red Blood Count 4.30 M/uL 4.20-5.80 17 Hemoglobin 15.1 gm/dL 12.8-17.0 17 Hematocrit 42.7 % 38.0-48.0 17 Mean Cell Volume 99.3 fl High 80.0-96.0 17 Mean Corpuscular HGB 35.1 pg High 27.0-33.0 17 Mean Corpuscular HGB Conc 35.4 g/dL 31.7-36.0 17 Platelet Count 242 K/uL 150-400 17 Red Cell Distri Width SD 48.0 fl 36-51 17 Red Cell Distri Width %CV 13.1 % 11.6-15.8 17 Mean Platelet Volume 11.6 fL High 6.6-10.6 17 Neut% 70.1 % 33.0-73.0 17 Lymph % 21.5 % 17.0-56.0 17 Jennings % 6.6 % 0.0-10.0 17 Eo% 1.2 % 0.0-5.0 17 Bas% 0.6 % 0.1-1.0 17 Neut# 5.99 K/uL 1.8-7.0 17 Lymph # 1.84 K/uL 1.8-7.0 17 Jennings # 0.56 K/uL 0.0-0.8 17 Eos # 0.10 K/uL 0.0-0.5 17 Baso # 0.05 K/uL Low 0.1-0.2 17 Urine Glucose (Ua) 04/08/2016 Urine Glucose (Ua) Negative Negative Laboratory test finding 04/08/2016 Urine Bilirubin Negative Negative Urine Ketones Negative Negative Urine Leukocyte Esterase Negative Negative Urine Nitrite Negative Negative Urine Protein Negative Negative Urine Urobilinogen 0.2 0.2-1.0 Protime 04/08/2015 Protime 17.9 seconds High 12.0-14.4 Inr 1.5 High 0.9-1.1 20 Laboratory test finding 04/08/2015 Prothrombin Time 17.9 High 12.0-14.4 Protime 03/29/2015 Protime 15.5 seconds High 12.0-14.4 Inr 1.2 High 0.9-1.1 21 Comprehensive Metabolic Panel 03/21/2015 Glucose 93 mg/dL 74-106 BUN 9 mg/dL 7-18 Creatinine 1.2 mg/dL 0.6-1.3 Glom Filtration Rate, Estimate >60 mL/min >60 If >60 mL/min >60 22 BUN/Creat 7.5 ratio Sodium 139 mmol/L 136-145 Potassium 3.8 mmol/L 3.5-5.1 Chloride 103 mmol/L 98-107 Carbon Dioxide 24 mmol/L 21-32 Anion Gap 12 mEq/L 8-16 Calcium 9.0 mg/dL 8.5-10.1 Total Protein 8.0 g/dL 6.4-8.2 Albumin 3.7 g/dL 3.4-5.0 Globulin 4.3 g/dL 1.9-4.3 Alb/Glob 0.9 ratio Bilirubin,Total 0.8 mg/dL 0.2-1.0 Sgot/Ast 16 U/L 15-37 SGPT/Alt 24 U/L 12-78 Alkaline Phosphatase 98 U/L 45-117 LDL Cholesterol Profile 03/21/2015 Cholesterol 157 mg/dL < 200 23 Triglycerides 200 mg/dL < 150 24 HDL Cholesterol 38 mg/dL > 40 25 LDL-Cholesterol 79 mg/dL < 100 26 Laboratory test finding 03/21/2015 TSH Reflex FT4 and/or 0.93 uIU/mL 0.36 -3.74 27 FT3 CBC W/Automated Diff 03/21/2015 White Blood Count 8.5 K/uL 3.4-10.5 Red Blood Count 4.84 M/uL 4.20-5.80 Hemoglobin 15.2 gm/dL 12.8-17.0 Hematocrit 45.9 % 38.0-48.0 Mean Cell Volume 94.8 fl 80.0-96.0 Mean Corpuscular HGB 31.4 pg 27.0-33.0 Mean Corpuscular HGB Conc 33.1 g/dL 31.7-36.0 Platelet Count 266 K/uL 150-400 Red Cell Distri Width SD 49.5 fl 36-51 Red Cell Distri Width %CV 14.8 % 11.6-15.8 Mean Platelet Volume 11.6 fL High 6.6-10.6 Neut% 69.1 % 33.0-73.0 Lymph % 16.3 % Low 17.0-56.0 Jennings % 9.3 % 0.0-10.0 Eo% 4.5 % 0.0-5.0 Bas% 0.8 % 0.1-1.0 Neut# 5.88 K/uL 1.8-7.0 Lymph # 1.39 K/uL Low 1.8-7.0 Jennings # 0.79 K/uL 0.0-0.8 Eos # 0.38 K/uL 0.0-0.5 Baso # 0.07 K/uL Low 0.1-0.2 Protime 03/21/2015 Protime 31.7 seconds High 12.1-14.9 Inr 3.0 High 0.9-1.1 28 Laboratory test finding 03/21/2015 Basophils # (Auto) 0.07 Low 0.1-0.2 Basophils (%) (Auto) 0.8 0.1-1.0 Eosinophils # (Auto) 0.38 0.0-0.5 Eosinophils (%) (Auto) 4.5 0.0-5.0 Lymphocytes # (Auto) 1.39 Low 1.8-7.0 Lymphocytes (%) (Auto) 16.3 Low 17.0-56.0 Monocytes # (Auto) 0.79 0.0-0.8 Monocytes (%) (Auto) 9.3 0.0-10.0 Neutrophils # (Auto) 5.88 1.8-7.0 Neutrophils (%) (Auto) 69.1 33.0-73.0 Prothrombin Time 31.7 High 12.1-14.9 RDW Coefficient of Variation 14.8 11.6-15.8 Red Cell Distribution Width 49.5 36-51 Sodium Level 139 136-145 Thyroid Stimulating Hormone (TSH) 0.93 0.36-3.74 Protime 03/15/2015 Protime 60.8 seconds High 12.0-14.4 Inr 7.0 High 0.9-1.1 29 Comprehensive Metabolic Panel 03/15/2015 Glucose 99 mg/dL 74-106 BUN 17 mg/dL 7-18 Creatinine 1.5 mg/dL High 0.6-1.3 Glom Filtration Rate, Estimate 55 mL/min >60 If >60 mL/min >60 30 BUN/Creat 11.3 ratio Sodium 139 mmol/L 136-145 Potassium 3.6 mmol/L 3.5-5.1 Chloride 104 mmol/L 98-107 Carbon Dioxide 24 mmol/L 21-32 Anion Gap 11 mEq/L 8-16 Calcium 9.0 mg/dL 8.5-10.1 Total Protein 7.8 g/dL 6.4-8.2 Albumin 4.0 g/dL 3.4-5.0 Globulin 3.8 g/dL 1.9-4.3 Alb/Glob 1.1 ratio Bilirubin,Total 0.9 mg/dL 0.2-1.0 Sgot/Ast 16 U/L 15-37 SGPT/Alt 35 U/L 12-78 Alkaline Phosphatase 99 U/L 45-117 CBC W/Automated Diff 03/15/2015 White Blood Count 10.5 K/uL 3.4-10.5 Red Blood Count 4.90 M/uL 4.20-5.80 Hemoglobin 15.2 gm/dL 12.8-17.0 Hematocrit 46.0 % 38.0-48.0 Mean Cell Volume 93.9 fl 80.0-96.0 Mean Corpuscular HGB 31.0 pg 27.0-33.0 Mean Corpuscular HGB Conc 33.0 g/dL 31.7-36.0 Platelet Count 280 K/uL 150-400 Red Cell Distri Width SD 48.7 fl 36-51 Red Cell Distri Width %CV 14.5 % 11.6-15.8 Mean Platelet Volume 11.3 fL High 6.6-10.6 Neut% 65.5 % 33.0-73.0 Lymph % 20.2 % 17.0-56.0 Jennings % 10.0 % 0.0-10.0 Eo% 3.7 % 0.0-5.0 Bas% 0.6 % 0.1-1.0 Neut# 6.85 K/uL 1.8-7.0 Lymph # 2.11 K/uL 1.8-7.0 Jennings # 1.04 K/uL High 0.0-0.8 Eos # 0.39 K/uL 0.0-0.5 Baso # 0.06 K/uL Low 0.1-0.2 Laboratory test finding 03/15/2015 Basophils # (Auto) 0.06 Low 0.1-0.2 Basophils (%) (Auto) 0.6 0.1-1.0 Eosinophils # (Auto) 0.39 0.0-0.5 Eosinophils (%) (Auto) 3.7 0.0-5.0 Estimated GFR (Non- 55 >60 Lymphocytes # (Auto) 2.11 1.8-7.0 Lymphocytes (%) (Auto) 20.2 17.0-56.0 Monocytes # (Auto) 1.04 High 0.0-0.8 Monocytes (%) (Auto) 10.0 0.0-10.0 Neutrophils # (Auto) 6.85 1.8-7.0 Neutrophils (%) (Auto) 65.5 33.0-73.0 Prothrombin Time 60.8 High 12.0-14.4 RDW Coefficient of Variation 14.5 11.6-15.8 Red Cell Distribution Width 48.7 36-51 Sodium Level 139 136-145 Thyroid Stimulating Hormone (TSH) 0.77 0.36-3.74 Laboratory test finding 03/15/2015 TSH Reflex FT4 and/or 0.77 uIU/mL 0.36 -3.74 31 FT3 LDL Cholesterol Profile 03/15/2015 Cholesterol 140 mg/dL < 200 32 Triglycerides 163 mg/dL < 150 33 HDL Cholesterol 38 mg/dL > 40 34 LDL-Cholesterol 69 mg/dL < 100 35 1 I48.1 I10 Z68.44 E03.9 2 Note: Persistent reduction for 3 months or more in an eGFR <60 mL/min/1.73 m2 defines CKD. Patients with eGFR values >/=60 mL/min/1.73 m2 may also have CKD if evidence of persistent proteinuria is present. The original MDRD equation for estimated GFR is not valid for patients less than 18 years of age. Additional information may be found at www.[email or web address]. 3 Elevated levels of HbA1c suggest the need for more aggressive treatment of glycemia. The [place] [employer] recommends that a primary goal of therapy should be a HbA1c of <7% and that physicians should re-evaluate the treatment regimen in patients with HbA1c values consistently >8%. 4 Instrument flagged sample for slide review. Less than 10% Bands seen, no other immature WBC's seen. RBC morphology=1+ MACROCYTES Platelet estimate=NORMAL, LARGE PLATELETS PRESENT. 5 E03.9 I10 6 Note: Persistent reduction for 3 months or more in an eGFR <60 mL/min/1.73 m2 defines CKD. Patients with eGFR values >/=60 mL/min/1.73 m2 may also have CKD if evidence of persistent proteinuria is present. The original MDRD equation for estimated GFR is not valid for patients less than 18 years of age. Additional information may be found at www.[email or web address]. 7 R73.9 I48.1 I10 8 Note: Persistent reduction for 3 months or more in an eGFR <60 mL/min/1.73 m2 defines CKD. Patients with eGFR values >/=60 mL/min/1.73 m2 may also have CKD if evidence of persistent proteinuria is present. The original MDRD equation for estimated GFR is not valid for patients less than 18 years of age. Additional information may be found at www.[email or web address]. 9 Reference Guidelines*: Desirable: ........... < 200 mg/dL Borderline High: ..... 200-239 mg/dL High: ................ >=240 mg/dL * The National Cholesterol Education Program (NCEP) 10 Reference Guidelines*: Normal: ............. < 150 mg/dL Borderline High: .... 150-199 mg/dL High: ............... 200-499 mg/dL Very High: .......... > 500 mg/dL * Source: National Cholesterol Education Program (NCEP) 11 Reference Guidelines*: Low HDL: ..... < 40 mg/dL Normal: ..... 40-60 mg/dL Desirable: ... > 60 mg/dL *The National Cholesterol Education Program(NCEP) 12 Reference Guidelines*: Optimal:........... <100 mg/dL Near Optimal....... 100-129 mg/dL Borderline High.... 130-159 mg/dL High............... 160-189 mg/dL Very High.......... >=190 mg/dL * Source: National Cholesterol Education Program (NCEP) 13 Elevated levels of HbA1c suggest the need for more aggressive treatment of glycemia. The [place] [employer] recommends that a primary goal of therapy should be a HbA1c of <7% and that physicians should re-evaluate the treatment regimen in patients with HbA1c values consistently >8%. 14 I48.1 15 Note: Persistent reduction for 3 months or more in an eGFR <60 mL/min/1.73 m2 defines CKD. Patients with eGFR values >/=60 mL/min/1.73 m2 may also have CKD if evidence of persistent proteinuria is present. The original MDRD equation for estimated GFR is not valid for patients less than 18 years of age. Additional information may be found at www.[email or web address]. 16 E03.9 17 PAIN ON LEFT SIDE 18 URINE, CLEAN CATCH 19 Note: Persistent reduction for 3 months or more in an eGFR <60 mL/min/1.73 m2 defines CKD. Patients with eGFR values >/=60 mL/min/1.73 m2 may also have CKD if evidence of persistent proteinuria is present. The original MDRD equation for estimated GFR is not valid for patients less than 18 years of age. Additional information may be found at www.kdoqi.org. 20 THERAPEUTIC INR RANGE: 2.0 - 3.0 DVT, Pulmonary embolus, prophylaxis against venous thrombosis or systemic embolization in high risk patients. 2.5 - 3.5 Mechanical heart valves 21 THERAPEUTIC INR RANGE: 2.0 - 3.0 DVT, Pulmonary embolus, prophylaxis against venous thrombosis or systemic embolization in high risk patients. 2.5 - 3.5 Mechanical heart valves 22 Note: Persistent reduction for 3 months or more in an eGFR <60 mL/min/1.73 m2 defines CKD. Patients with eGFR values >/=60 mL/min/1.73 m2 may also have CKD if evidence of persistent proteinuria is present. The original MDRD equation for estimated GFR is not valid for patients less than 18 years of age. Additional information may be found at www.kdoqi.org. 23 Reference Guidelines*: Desirable: ........... < 200 mg/dL Borderline High: ..... 200-239 mg/dL High: ................ >=240 mg/dL * The National Cholesterol Education Program (NCEP) 24 Reference Guidelines*: Normal: ............. < 150 mg/dL Borderline High: .... 150-199 mg/dL High: ............... 200-499 mg/dL Very High: .......... > 500 mg/dL * Source: National Cholesterol Education Program (NCEP) 25 Reference Guidelines*: Low HDL: ..... < 40 mg/dL Normal: ..... 40-60 mg/dL Desirable: ... > 60 mg/dL *The National Cholesterol Education Program(NCEP) 26 Reference Guidelines*: Optimal:........... <100 mg/dL Near Optimal....... 100-129 mg/dL Borderline High.... 130-159 mg/dL High............... 160-189 mg/dL Very High.......... >=190 mg/dL * Source: National Cholesterol Education Program (NCEP) 27 QUERY: Reflex add FT3? Y QUERY: Reflex add FT4? Y 28 THERAPEUTIC INR RANGE: 2.0 - 3.0 DVT, Pulmonary embolus, prophylaxis against venous thrombosis or systemic embolization in high risk patients. 2.5 - 3.5 Mechanical heart valves 29 THERAPEUTIC INR RANGE: 2.0 - 3.0 DVT, Pulmonary embolus, prophylaxis against venous thrombosis or systemic embolization in high risk patients. 2.5 - 3.5 Mechanical heart valves 30 Note: Persistent reduction for 3 months or more in an eGFR <60 mL/min/1.73 m2 defines CKD. Patients with eGFR values >/=60 mL/min/1.73 m2 may also have CKD if evidence of persistent proteinuria is present. The original MDRD equation for estimated GFR is not valid for patients less than 18 years of age. Additional information may be found at www.[email or web address]. 31 QUERY: Reflex add FT3? Y QUERY: Reflex add FT4? Y 32 Reference Guidelines*: Desirable: ........... < 200 mg/dL Borderline High: ..... 200-239 mg/dL High: ................ >=240 mg/dL * The National Cholesterol Education Program (NCEP) 33 Reference Guidelines*: Normal: ............. < 150 mg/dL Borderline High: .... 150-199 mg/dL High: ............... 200-499 mg/dL Very High: .......... > 500 mg/dL * Source: National Cholesterol Education Program (NCEP) 34 Reference Guidelines*: Low HDL: ..... < 40 mg/dL Normal: ..... 40-60 mg/dL Desirable: ... > 60 mg/dL *The National Cholesterol Education Program(NCEP) 35 Reference Guidelines*: Optimal:........... <100 mg/dL Near Optimal....... 100-129 mg/dL Borderline High.... 130-159 mg/dL High............... 160-189 mg/dL Very High.......... >=190 mg/dL * Source: National Cholesterol Education Program (NCEP) Procedures Date CPT Code Description Status Comment 11/01/2017 67859 Scanning Computerized Completed Ophthalmic Diagnostic Imaging, Posterior 11/01/2017 77997 Visual Field Exam Extended, Completed Unilateral Or Bilateral 11/01/2017 25153 Eye Exam Est Patient Completed Comprehensive 10/14/2016 49375 Eye Exam Est Patient Completed Comprehensive 10/04/2015 24457 Eye Exam New Patient Completed Comprehensive 09/21/2012 Colonoscopy Completed Document: 09/21/12 - Operative Report-Colonoscopy 03/09/2012 93467 Echocardiogram Complete Completed 03/09/2012 19271 EKG Interpretation And Report Completed Only Encounters Type Date Location Provider CPT E/M Dx Office Visit 12/20/2017 1:00p Surgical Office Vlad Wilkes MD,FACS 20972 K43.9 Office Visit 12/02/2017 2:00[place] [address] K43.9 I48.1 Z68.44 Office Visit 09/23/2017 10:15a Primary Care Office Quin Porter [facility] 44299 I10 Z86.718 I48.1 M62.830 E03.9 Z68.44 Office Visit 07/19/2017 2:30p Primary Care Office Quin Porter [facility] 53826 J20.9 Office Visit 05/31/2017 9:30a Primary Care Office Quin Porter [facility] 47762 I10 Z68.44 Office Visit 04/21/2017 9:30a Primary Care Office Quin Porter [facility] 86147 Z23 M62.830 Z23 Office Visit 03/30/2017 10:45a Primary Care Office Quin Porter [facility] 53985 I10 B37.9 E03.9 Office Visit 01/29/2017 10:00a Primary Care Office Quin Porter 10254 I10 [facility] Office Visit 09/15/2016 10:15a Primary Care Office Quin Porter 51312 M76.61 RPA E66.9 Z68.42 Office Visit 07/29/2016 10:15a Primary Care Office Quin Porter 11694 Z86.718 [facility] Office Visit 07/15/2016 11:00a Primary Care Office Quin Porter, 82189 K43.9 [facility] Z01.818 I48.1 I10 E66.9 G24.01 F41.9 Z86.718 Office Visit 06/26/2016 2:15p Primary Care Office Quin Porter, [facility] 57276 I10 E03.9 Office Visit 05/15/2016 10:45a Primary Care Office Quin Porter, [facility] 63931 I10 E03.9 E66.9 Z23 Office Visit 03/02/2016 2:00p Primary Care Office Quin Porter, 55589 S90.822A [facility] Office Visit 02/13/2016 10:30a Primary Care Office Quin Porter, 83588 I10 [facility] I48.1 M72.2 M25.572 E66.2 Office Visit 12/03/2015 2:00p Primary Care Office Quin Porter, [facility] 24859 E66.9 I48.1 I10 Office Visit 11/07/2015 11:15a Primary Care Office Quin Porter, [facility] 58118 E66.9 K43.2 I48.1 Office Visit 09/13/2015 10:00a Primary Care Office Quin Porter, [facility] 42674 J06.9 N39.42 I10 E66.9 Office Visit 07/03/2015 8:15a Surgical Office Perico Urrutia, 56594 E66.8 Divya K43.2 I48.91 Office Visit 06/20/2015 10:00a Primary Care Office Quin Porter, [facility] 77762 J06.9 R05 Z23 K46.9 Office Visit 04/16/2015 10:15a Primary Care Office Quin Porter, [facility] 83226 698.8 311 427.31 Office Visit 03/11/2015 9:30a Primary Care Office Quin Porter, 54200 919.4 [facility] Office Visit 03/05/2015 10:00a Primary Care Office Akosua Eubanks M.D. 13602 427.31 786.05 V70.0 278.03 244.8 Office Visit 03/31/2012 2:51p Cardiology Office Anmol Ruiz, 51052 786.05 Divya, [facility] Office Visit 03/09/2012 3:57p [place] [address] 427.31 Plan of Care Future Appointment(s):04/06/2018 10:00 am - ALYSON Grier at [facility] [id number]/04/2018 10:30 am - Bonifacio Ferreira MD at [email or web address]/22/2018 [facility] apnea, unspecifiedComments:[id number] Essential (primary) hypertensionComments:Continue Diltiazem 120mg two tabs in AM and 1 tab in PM, Valsartan 160mg q AM, HCTZ 12.5mg daily.Follow up:3 [id number] Insect bite (nonvenomous) of right forearm, init encntrNew Medication:Elocon 0.1 %Comments:(R) arm, during past weekZ68.44 Body mass index (BMI) 60.0-69.9, adultComments:[facility] Dr Peguero, Dr Wilkes
--- OUTSIDE RECORDS SUMMARY | 2018-01-07 18:19 | XMS REPORT ---
:1975 External Reference #:[id number] Author Organization [facility] 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 Quin Porter RPAC Primary Care Physician Unavailable Payers Type Date Identification Numbers Payment Provider Subscriber Medicare Primary Policy Number: [id number] Medicare Scott Costello PayID: [id number] [address] [place] [address] Medicaid Policy Number: [id number] Medicaid Scott Costello PayID: [id number] [address] [place] [address] Problems Date Description Provider Status Onset: 03/05/2015 [...] apnea syndrome Paradise High PA-C Active Note: C-pap Onset: 03/26/2015 Gastroparesis syndrome Paradise High PA-C [...] Onset: 04/16/2015 Degeneration of lumbar Quin Porter [facility] Active intervertebral disc Note: L2-L3 Onset: 06/20/2015 [facility]co[facility] state [facility] Note: 2 thrombotic episodes > LUE & PE Onset: 03/10/2016 Degenerative joint disease involving Quin Porter [facility] Active multiple joints Note: ankle,knee,hip Onset: 05/15/2016 Gingivitis [facility] Active Onset: 07/15/2016 H/O: pulmonary embolus [facility] Active Note: 2013 while recovering from leg fx Onset: 05/31/2017 Hernia of anterior abdominal wall ALYSON Grier Active Note: large, surgery under consideration Onset: [...] on a low carb diet Occupation Disabled [employer] Work Status Disabled [...] Form Strength Qnty SIG Indications Ordering Provider Cyclobenzaprine 08/27 Active Tablets 10mg 60tabs take 1 Frandy HCL /2017 tablet Hernandez, every 8 M.D. hours for muscle spasm as needed, may use 2 tabs every night at bedtime Loratadine 07/19 Active Tablets 10mg 30tabs take one J20.9 Frandy tablet by Hernandez, mouth M.D. every day as needed for congestion /allergies Hydrocortisone 03/30 Active Cream 2.5% 30gm thin layer B37.9 to rash Hernandez, three-four M.D. times a day for itchy rash Vitamin D3 07/24 Active Tablets 1000Unit 90tabs Take One Frandy Tablet By Hernandez, Mouth M.D. Every Day [...] 500mg 60tabs 1-2 tabs Frandy Extra Strength by mouth Hernandez, every 6 M.D. hours as needed for pain ::: max dose is 6 tabs in 24 hours Xarelto 04/01 Active Tablets 20mg 90tabs 1 by mouth Frandy every Hernandez, evening M.D. with dinner Diltiazem HCL 02/16 Active Tablets 120mg 90tabs take two Frandy tablets by Hernandez, mouth M.D. every morning and 1 tablet by mouth every evening Hydrochlorothiazi Active Capsules 12.5mg 90caps 1 cap by Frandy de / mouth Hernandez, every in M.D. the morning Sertraline HCL Active Tablets 100mg 90tabs 1 by mouth Frandy /0000 every day Divya Hernandez Levothyroxine Active Tablets 75mcg 90tabs take one Frandy Sodium / tablet by David, mouth M.D. every day Sulfamethoxazole/ 07/19 Hx Tablets 800-160mg 20tabs take one J20.9 [facility] Trimethoprim tablet by David, - mouth M.D. 08/17 twice a day with food Benzonatate 07/19 Hx Capsules 200mg 30caps 1 cap by J20.9 Frandy mouth David, - three M.D. 08/27 times a day as needed cough Robitussin Chest 07/19 Hx Syrup 100mg/5ML 237ml 10 ml po q 0.9 [facility] 4 hr for David, - cough M.D. 08/27 Cyclobenzaprine 04/12 Hx Tablets 5mg take one Frandy tablet by David, - mouth at M.D. 08/27. Nystatin 03/30 Hx Cream 389186Wpv 30gm thin layer B37.9 t/GM to David, - affected M.D. 07/19 area times a day Elocon 12/14 Hx Cream 0.1% 50gm Thin layer to insect David, bites tid M.D. Enoxaparin Sodium 07/15 Hx Solution 120mg/0.8 2.4ml 120mg sq q I48.1 Ryan Wright /2015 ML day on Leonel MERCHANT - 07/30, 08/04 07/31, 08/01/16 C-Pap Supplies 01/14 Hx Tubing, G47.33 Ryan Wright hose, and Leonel MERCHANT - mask For 04/24 nightly /2016 use Diltiazem HCL CD 09/13 Hx Caps ER 360mg 30caps 1 cap by I10 Ryan Wright 24HR mouth Leonel MERCHANT - every day 09/13 Aripiprazole 08/27 Hx Tablets 5mg 30tabs 1 tab Ryan Wright /2015 every day Leonel MERCHANT Multivital 08/21 Hx Tablets 90tabs 1 by mouth Ryan Wright every day Leonel MERCHANT - 05/15 Robitussin DM 06/20 Hx Syrup 100-10mg/ 237ml 2 tsp by R05 Ryan Wright 5ML mouth Leonel DO - every 4 09/13 hours as needed Sudafed 06/20 Hx Tablets 30mg 60tabs 1-2 tabs J06.9 Ryan Wright /2014 by mouth Leonel DO - every 4 04/24 hours as needed nasal congestion Vitamin D3 05/10 Hx Tablets 1000Unit 90tabs Take One Ryan Wright Tablet By Leonel MERCHANT - Mouth 05/15 Every Day Elocon 04/16 Hx Cream 0.1% 45gm Thin [...] C-Pap Supplies 04/06 Hx OneSet for Ryan Otero. nightly Leonel DO - use ::: 04/26 dx: 278. Warfarin Sodium 03/29 Hx Tablets 4mg 30tabs 1 by mouth yRan Wright every day Leonel MERCHANT - 04/03 Zyrtec Allergy 03/14 Hx Capsules 10mg 30caps 1 cap (or 919.4 Ryan Wright /2014 tab) by Leonel MERCHANT - mouth 09/15 evening for itching Hydrocortisone 03/14 Hx Lotion 1% 114gm Thin layer Ryan Wright to rash q Leonel MERCHANT - 4-6 hrs 04/16 Cyproheptadine 03/11 Hx Tablets 4mg 30tabs 1 tab by 919.4 Ryan Wright mouth Leonel DO - three 03/14 times a day for itching Abilify 02/16 Hx Tablets 5mg 30tabs 1 tab Ryan Wright /2014 every day Leonel MERCHANT - 08/27 Zoloft 00/00 Hx Tablets 1 by mouth Unknown /0000 every day - 03/04 Aspirin Ec 00/00 Hx Tablets 325mg 1 by mouth Unknown /0000 DR every day - 04/03 Vitamin B-12 00/00 Hx Tablets 1 by mouth Unknown /0000 Sub every day - 04/24 Nyamyc 00/00 Hx Powder [id number] [place], /0000 t/GM Arun Alonso, DO 04/16 Warfarin Sodium 00/00 Hx Tablets 1mg [place], 0000 Arun Alonso, DO 03/04 Warfarin Sodium 00/00 Hx Tablets 3mg [place], 0000 Arun Alonso, DO 03/04 Warfarin Sodium 00/00 Hx Tablets 9mg since [place], 0000 07/2014 Arun Alonso, DO 03/29 Tamiflu Hx Capsules 75mg [place], 0000 Arun Alonso, DO 03/04 Ibuprofen Hx Tablets 600mg Robenstei /0000 Jazz coello, - DO 03/11 Prednisone 00/00 Hx Tablets 20mg 1 po q , , cynthia Banks, - dose 03/12 Sulfamethoxazole/ 0000 Hx Tablets 800-160mg 1 by mouth Unknown Trimethoprim DS /0000 twice a - day 05/09 Mapap 00/00 Hx Tablets 325mg Take One Unknown /0000 Tablet By - Mouth 04/24 Every Hours as Needed For Pain Immunizations CPT Code Status Date Vaccine Lot # [id number] Given 04/21/2017 Influenza Virus Vaccine, Quadrivalent, Slit Virus, Im Use Q2038 Given 05/15/2016 Influenza Vaccine (Fluzone) Age 3 And Older [id number] Given 06/20/2015 Influenza Vaccine (Fluzone) Age 3 And Older [id number] Vital Signs Date Vital Result Comment 12/20/2017 BP Systolic 138 mmHg BP Diastolic 80 mmHg Height 71.50 inches 5'11.50" Weight 501.00 lb BMI (Body Mass Index) 68.9 kg/m2 BSA (Body Surface Area) 3.13 m2 [place] body weight in kilograms 79 12/02/2017 BP Systolic Sitting Left Arm 140 mmHg BP Diastolic Sitting Left Arm 80 mmHg Heart Rate 70 /min Respiratory Rate 18 /min Height 71.50 inches 5'11.50" Weight 498.00 lb BMI (Body Mass Index) 68.5 kg/m2 BSA (Body Surface Area) 3.12 m2 [place] body weight in kilograms 79 09/23/2017 BP Systolic Sitting Right Arm 118 mmHg (extra large cuff) BP Diastolic Sitting Right Arm 80 mmHg (extra large cuff) Heart Rate 71 /min Height 71.50 inches 5'11.50" Weight 492.00 lb BMI (Body Mass Index) 67.7 kg/m2 BSA (Body Surface Area) 3.11 m2 [place] body weight in kilograms 79 O2 % BldC Oximetry 97 % 07/19/2017 BP Systolic 144 mmHg BP Diastolic 90 mmHg Body Temperature 96.7 F Heart Rate 61 /min Respiratory Rate 18 /min Height 71.50 inches 5'11.50" Weight 477.00 lb BMI (Body Mass Index) 65.6 kg/m2 BSA (Body Surface Area) 3.07 m2 [place] body weight in kilograms 79 O2 % BldC Oximetry 94 % 05/31/2017 BP Systolic Sitting Right Arm 118 mmHg BP Diastolic Sitting Right Arm 68 mmHg Heart Rate 56 /min Respiratory Rate 24 /min Height 71.50 inches 5'11.50" Weight 476.00 lb BMI (Body Mass Index) 65.5 kg/m2 BSA (Body Surface Area) 3.06 m2 [place] body weight in kilograms 79 O2 % BldC Oximetry 98 % 04/21/2017 BP Systolic Sitting Left Arm 108 mmHg BP Diastolic Sitting Left Arm 62 mmHg Heart Rate 59 /min Height 71.50 inches 5'11.50" Weight 456.00 lb BMI (Body Mass Index) 62.7 kg/m2 BSA (Body Surface Area) 3.01 m2 [place] body weight in kilograms 79 O2 % BldC Oximetry 93 % 03/30/2017 BP Systolic Sitting Right Arm 122 mmHg BP Diastolic Sitting Right Arm 76 mmHg Heart Rate 64 /min Respiratory Rate 24 /min Height 71.50 inches 5'11.50" Weight 454.00 lb BMI (Body Mass Index) 62.4 kg/m2 BSA (Body Surface Area) 3.00 m2 [place] body weight in kilograms 79 O2 % BldC Oximetry 98 % ra 01/29/2017 BP Systolic Sitting Right Arm 140 mmHg BP Diastolic Sitting Right Arm 80 mmHg Height 71.50 inches 5'11.50" Weight 464.25 lb BMI (Body Mass Index) 63.8 kg/m2 BSA (Body Surface Area) 3.03 m2 [place] body weight in kilograms 79 09/15/2016 BP [...] Lymph % 17.9 % Low 20.0-42.0 1 [place] % 12.3 % High 0.0-10.0 1 Eo% 2.4 % 0.0-6.6 1 Bas% 0.4 % 0.0-1.1 1 Neut# 7.18 K/uL High 1.8-7.0 1 Lymph # 1.92 K/uL 1.0-4.0 1 [place] # 1.32 K/uL High 0.0-0.8 1 Eos [...] Lymph % 19.7 % Low 20.0-42.0 5 [place] % 7.2 % 0.0-10.0 5 Eo% 2.0 % 0.0-6.6 5 Bas% 0.5 % 0.0-1.1 5 Neut# 6.72 K/uL 1.8-7.0 5 Lymph # 1.87 K/uL 1.0-4.0 5 [place] # 0.68 K/uL 0.0-0.8 5 Eos # [...] count (number/volume) (number/volume) Chloride SerPl-[facility]nc 03/30/2017 [facility] 105 98-107 Eosinophil/leuk NFr Bld 03/30/2017 Eosinophil/leuk [...] 7 Lymph % 21.1 % 20.0-42.0 7 [place] % 8.9 % 0.0-10.0 7 Eo% 2.8 % 0.0-6.6 7 Bas% 0.7 % 0.0-1.1 7 Neut# 6.04 K/uL 1.8-7.0 7 Lymph # 1.92 K/uL 1.0-4.0 7 Knox # 0.81 K/uL High 0.0-0.8 7 Eos [...] 14 Lymph % 27.7 % 17.0-56.0 14 [place] % 7.0 % 0.0-10.0 14 Eo% 1.5 % 0.0-5.0 14 Bas% 0.6 % 0.1-1.0 14 Neut# 5.54 K/uL 1.8-7.0 14 Lymph # 2.43 K/uL 1.8-7.0 14 Knox # 0.61 K/uL 0.0-0.8 14 Eos # [...] finding Free T4 1.21 ng/dL 0.76-1.46 16 Aspartate Amino Transf 04/08/2016 Aspartate Amino Transf 23 15-37 (Ast/Sgot) (Ast/Sgot) Urine Screen 04/08/2016 Urine Color DK YELLOW Yellow 17 Urine Clarity CLEAR Clear 17 Urine Glucose - Dipstick NEGATIVE mg/dL Negative 17 Urine Bilirubin - Dipstick NEGATIVE Negative 17 Urine Ketone NEGATIVE mg/dL Negative 17 Urine Specific [place] 1.025 1.010-1.030 17 Urine Blood NEGATIVE Negative 17 Urine PH 6.0 Low 6.5-7.5 17 Urine Protein - Dipstick NEGATIVE mg/dL Negative 17 Urine Urobilinogen - Dipstick 0.2 E.U./dL 0.2-1.0 17 Urine Nitrite - Dipstick NEGATIVE Negative 17 Urine Leuk Esterase NEGATIVE Negative 17 Source: URINE, CLEAN CAT <SEE 17, 18 NOTE> Laboratory test finding 04/08/2016 Alanine Aminotransferase (Alt/SGPT) 34 12-78 Albumin/Globulin Ratio 1.1 Total Bilirubin 0.7 0.2-1.0 [...] 17 Lymph % 21.5 % 17.0-56.0 17 Knox % 6.6 % 0.0-10.0 17 Eo% 1.2 % 0.0-5.0 17 Bas% 0.6 % 0.1-1.0 17 Neut# 5.99 K/uL 1.8-7.0 17 Lymph # 1.84 K/uL 1.8-7.0 17 Knox # 0.56 K/uL 0.0-0.8 17 Eos # [...] 33.0-73.0 Lymph % 16.3 % Low 17.0-56.0 Knox % 9.3 % 0.0-10.0 Eo% 4.5 % 0.0-5.0 Bas% 0.8 % 0.1-1.0 Neut# 5.88 K/uL 1.8-7.0 Lymph # 1.39 K/uL Low 1.8-7.0 Knox # 0.79 K/uL 0.0-0.8 Eos # 0.38 [...] % 33.0-73.0 Lymph % 20.2 % 17.0-56.0 Knox % 10.0 % 0.0-10.0 Eo% 3.7 % 0.0-5.0 Bas% 0.6 % 0.1-1.0 Neut# 6.85 K/uL 1.8-7.0 Lymph # 2.11 K/uL 1.8-7.0 Knox # 1.04 K/uL High 0.0-0.8 Eos # [...] for more aggressive treatment of glycemia. The [place] [employer] recommends that a primary goal [...] for more aggressive treatment of glycemia. The [place] [employer] recommends that a primary goal [...] Date CPT Code Description Status Comment 11/01/2017 85292 Scanning Computerized Completed Ophthalmic Diagnostic Imaging, Posterior 11/01/2017 81162 Visual Field Exam Extended, Completed Unilateral Or Bilateral 11/01/2017 79225 Eye Exam Est Patient Completed Comprehensive 10/14/2016 07343 Eye Exam Est Patient Completed Comprehensive 10/04/2015 81939 Eye Exam New Patient Completed Comprehensive 09/21/2012 Colonoscopy Completed Document: 09/21/12 - Operative Report-Colonoscopy 03/09/2012 02591 Echocardiogram Complete Completed 03/09/2012 24998 EKG Interpretation And Report Completed Only Encounters Type Date Location Provider CPT E/M Dx Office Visit 12/02/2017 2:00[place] [address] K43.9 I48.1 Z68.44 Office Visit 09/23/2017 10:15a Primary Care Office Quin Porter, [facility] 69788 I10 Z86.718 I48.1 M62.830 E03.9 Z68.44 Office Visit 07/19/2017 2:30p Primary Care Office Quin Porter, [facility] 08994 J20.9 Office Visit 05/31/2017 9:30a Primary Care Office Quin Porter, [facility] 71398 I10 Z68.44 Office Visit 04/21/2017 9:30a Primary Care Office Quin Porter [facility] 71498 Z23 M62.830 Z23 Office Visit 03/30/2017 10:45a Primary Care Office Quin Porter [facility] 81181 I10 B37.9 E03.9 Office Visit 01/29/2017 10:00a Primary Care Office Quin Porter, 51452 I10 [facility] Office Visit 09/15/2016 10:15a Primary Care Office Quin Porter, 73595 M76.61 [facility] E66.9 Z68.42 Office Visit 07/29/2016 10:15a Primary Care Office Quin Porter, 03603 Z86.718 [facility] Office Visit 07/15/2016 11:00a Primary Care Office Quin Porter, 92072 K43.9 [facility] Z01.818 I48.1 I10 E66.9 G24.01 F41.9 Z86.718 Office Visit 06/26/2016 2:15p Primary Care Office Quin Porter, [facility] 06842 I10 E03.9 Office Visit 05/15/2016 10:45a Primary Care Office Quin Porter [facility] 94887 I10 E03.9 E66.9 Z23 Office Visit 03/02/2016 2:00p Primary Care Office Quin Porter, 26922 S90.822A [facility] Office Visit 02/13/2016 10:30a Primary Care Office Quin Porter, 28327 I10 [facility] I48.1 M72.2 M25.572 E66.2 Office Visit 12/03/2015 2:00p Primary Care Office Quin Porter, [facility] 55102 E66.9 I48.1 I10 Office Visit 11/07/2015 11:15a Primary Care Office Quin Porter [facility] 72933 E66.9 K43.2 I48.1 Office Visit 09/13/2015 10:00a Primary Care Office Quin Porter, [facility] 07776 J06.9 N39.42 I10 E66.9 Office Visit 07/03/2015 8:15a Surgical Office Perico Urrutia, 04898 E66.8 MEdy K43.2 I48.91 Office Visit 06/20/2015 10:00a Primary Care Office Quin Porter, [facility] 68215 J06.9 R05 Z23 K46.9 Office Visit 04/16/2015 10:15a Primary Care Office Quin Porter, [facility] 06040 698.8 311 427.31 Office Visit 03/11/2015 9:30a Primary Care Office Quin Porter, 90838 919.4 [facility] Office Visit 03/05/2015 10:00a Primary Care Office Akosua Eubanks M.D. 26575 427.31 786.05 V70.0 278.03 244.8 Office Visit 03/31/2012 2:51p Cardiology Office Anmol Ruiz, 53565 786.05 Divya, [facility] Office Visit 03/09/2012 3:57p Cardiology [place] [address] 427.31 Plan of Care Future Appointment(s):11/04/2018 10:30 am - Bonifacio Ferreira MD at [id number]/ 07/2018 - Vlad Wilkes MD,[id number] Ventral hernia without obstruction or gangreneComments:patient is super obese and has a unilateral discripancy of his abdominal wall, more on the right side, could be recurrent hernia, or body habitus due to obesity. more likely this is a hernia with wide neck or loss of domain. patient clinically has no complaints and he is a very highly increased risk for any elective surgical intervention at this time. i recommended that he seeks weight loss surgery before i would consider fixing his hernia electively. to this point he hasn't had any CT scans done, our CT weight limit is 450 lbs. his weight is 500+ lbs. will try to set him up for a CT scan of the abdomen and pelvis with oral contrast only at another institution that is capable to hold his weight. will let him know about the CT scan results.
--- OUTSIDE RECORDS SUMMARY | 2018-01-07 18:20 | XMS REPORT ---
:1975 External Reference #:[id number] Author Organization [facility] 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 Quin Porter RPAC Primary Care Physician Unavailable Payers Type Date Identification Numbers Payment Provider Subscriber Medicare Primary Policy Number: [id number] Medicare Scott Costello PayID: [id number] [address] [place] [address] Medicaid Policy Number: [id number] Medicaid Scott Costello PayID: [id number] [address] [place] [address] Problems Date Description Provider Status Onset: 03/05/2015 [...] Onset: 04/16/2015 Degeneration of lumbar Quin Porter [facility] Active intervertebral disc Note: L2-L3 Onset: 06/20/2015 Hypercoagulability state [facility] Note: 2 thrombotic episodes > LUE & PE Onset: 03/10/2016 Degenerative joint disease involving Quin Porter [facility] Active multiple joints Note: ankle,knee,hip Onset: 05/15/2016 Gingivitis [facility] Active Onset: 07/15/2016 H/O: pulmonary embolus [facility] Active Note: 2013 while recovering from [...] on a low carb diet Occupation Disabled [employer] Work Status Disabled [...] Active Tablets 20mg 90tabs 1 by mouth Farndy every Hernandez, evening M.D. with dinner Diltiazem [...] Hx Tablets 800-160mg 20tabs take one J20.9 [facility] Trimethoprim tablet by David, - mouth M.D. 08/17 twice a day with food Benzonatate 07/19 Hx Capsules 200mg 30caps 1 cap by J20.9 Frandy mouth David, - three M.D. 08/27 times a day as needed cough Robitussin Chest 07/19 Hx Syrup 100mg/5ML 237ml 10 ml po q 0.9 [facility] 4 hr for David, - cough M.D. 08/27 Cyclobenzaprine 04/12 Hx Tablets 5mg take one Frandy tablet by David, - mouth at M.D. 08/27. Nystatin 03/30 Hx Cream [id number] 30gm thin layer B37.9 t/GM to David, [...] day - 04/24 Nyamyc 00/00 Hx Powder [id number] [place], /0000 t/GM Arun Alonso, DO 04/16 Warfarin Sodium 00/00 Hx Tablets 1mg [place], 0000 Arun Alonso, DO 03/04 Warfarin Sodium 00/00 Hx Tablets 3mg [place], 0000 Arun Alonso, DO 03/04 Warfarin Sodium 00/00 Hx Tablets 9mg since [place], 0000 07/2014 Arun Alonso, DO 03/29 Tamiflu Hx Capsules 75mg [place], 0000 Arun Alonso, DO 03/04 Ibuprofen 00 Hx Tablets 600mg Robenstei /0000 Jazz coello, [...] CPT Code Status Date Vaccine Lot # [id number] Given 04/21/2017 Influenza Virus Vaccine, Quadrivalent, Slit Virus, Im Use [id number] Given 05/15/2016 Influenza Vaccine (Fluzone) Age 3 And Older [id number] Given 06/20/2015 Influenza Vaccine (Fluzone) Age 3 And Older [id number] Vital Signs Date Vital Result Comment 12/02/2017 BP Systolic Sitting Left Arm 140 mmHg BP Diastolic Sitting Left Arm 80 mmHg Heart Rate 70 /min Respiratory Rate 18 /min Height 71.50 inches 5'11.50" Weight 498.00 lb BMI (Body Mass Index) 68.5 kg/m2 BSA (Body Surface Area) 3.12 m2 [place] body weight in kilograms 79 09/23/2017 BP Systolic Sitting Right Arm 118 mmHg (extra large cuff) BP Diastolic Sitting Right Arm 80 mmHg (extra large cuff) Heart Rate 71 /min Height 71.50 inches 5'11.50" Weight 492.00 lb BMI (Body Mass Index) 67.7 kg/m2 BSA (Body Surface Area) 3.11 m2 [place] body weight in kilograms 79 O2 % BldC Oximetry 97 % 07/19/2017 BP Systolic 144 mmHg BP Diastolic 90 mmHg Body Temperature 96.7 F Heart Rate 61 /min Respiratory Rate 18 /min Height 71.50 inches 5'11.50" Weight 477.00 lb BMI (Body Mass Index) 65.6 kg/m2 BSA (Body Surface Area) 3.07 m2 [place] body weight in kilograms 79 O2 % BldC Oximetry 94 % 05/31/2017 BP Systolic Sitting Right Arm 118 mmHg BP Diastolic Sitting Right Arm 68 mmHg Heart Rate 56 /min Respiratory Rate 24 /min Height 71.50 inches 5'11.50" Weight 476.00 lb BMI (Body Mass Index) 65.5 kg/m2 BSA (Body Surface Area) 3.06 m2 [place] body weight in kilograms 79 O2 % BldC Oximetry 98 % 04/21/2017 BP Systolic Sitting Left Arm 108 mmHg BP Diastolic Sitting Left Arm 62 mmHg Heart Rate 59 /min Height 71.50 inches 5'11.50" Weight 456.00 lb BMI (Body Mass Index) 62.7 kg/m2 BSA (Body Surface Area) 3.01 m2 [place] body weight in kilograms 79 O2 % BldC Oximetry 93 % 03/30/2017 BP Systolic Sitting Right Arm 122 mmHg BP Diastolic Sitting Right Arm 76 mmHg Heart Rate 64 /min Respiratory Rate 24 /min Height 71.50 inches 5'11.50" Weight 454.00 lb BMI (Body Mass Index) 62.4 kg/m2 BSA (Body Surface Area) 3.00 m2 [place] body weight in kilograms 79 O2 % BldC Oximetry 98 % 01/29/2017 BP Systolic Sitting Right Arm 140 mmHg BP Diastolic Sitting Right Arm 80 mmHg Height 71.50 inches 5'11.50" Weight 464.25 lb BMI (Body Mass Index) 63.8 kg/m2 BSA (Body Surface Area) 3.03 m2 [place] body weight in kilograms 79 09/15/2016 BP [...] Lymph % 17.9 % Low 20.0-42.0 1 [place] % 12.3 % High 0.0-10.0 1 Eo% 2.4 % 0.0-6.6 1 Bas% 0.4 % 0.0-1.1 1 Neut# 7.18 K/uL High 1.8-7.0 1 Lymph # 1.92 K/uL 1.0-4.0 1 [place] # 1.32 K/uL High 0.0-0.8 1 Eos [...] Review 09/23/2017 Slide Review . 1, 4 Globulin Ser Calc-mCnc 03/30/2017 Globulin Ser Calc-mCnc 4.0 1.9-4.3 Lymphocytes/leuk NFr 03/30/2017 Lymphocytes/leuk NFr 19.7 Low 20.0-42.0 Bld Auto Bld Auto Monocytes/leuk NFr Bld 03/30/2017 Monocytes/leuk NFr Bld 7.2 0.0-10.0 Auto Auto Neutrophils # Bld Auto 03/30/2017 Neutrophils # Bld Auto 6.72 1.8-7.0 Neutrophils/leuk NFr 03/30/2017 Neutrophils/leuk NFr 70.6 33.0-73.0 Bld Auto Bld Auto Potassium SerPl-sCnc 03/30/2017 Potassium SerPl-sCnc 3.8 3.5-5.1 RDW RBC Auto 03/30/2017 RDW RBC Auto 46.7 36-51 RDW RBC Auto-Rto 03/30/2017 RDW RBC Auto-Rto 13.3 11.6-15.8 Serum carbon dioxide 03/30/2017 Serum carbon dioxide 26 21-32 measurement measurement Serum or plasma 03/30/2017 Serum or plasma 3.9 3.4-5.0 albumin measurement albumin measurement (mass/volume) (mass/volume) Serum or plasma 03/30/2017 [...] 03/30/2017 WBC # Bld Auto 9.5 3.4-10.5 Laboratory test 03/30/2017 Thyroid Stim Hormone 2.90 uIU/mL 0.30-4.20 5 finding Comprehensive 03/30/2017 Glucose 84 mg/dL 74-106 5 [...] 5 Alkaline Phosphatase 105 U/L 45-117 5 CBS W/Automated Diff 03/30/2017 White Blood [...] Lymph % 19.7 % Low 20.0-42.0 5 [place] % 7.2 % 0.0-10.0 5 Eo% 2.0 % 0.0-6.6 5 Bas% 0.5 % 0.0-1.1 5 Neut# 6.72 K/uL 1.8-7.0 5 Lymph # 1.87 K/uL 1.0-4.0 5 [place] # 0.68 K/uL 0.0-0.8 5 Eos # [...] 7 Lymph % 21.1 % 20.0-42.0 7 [place] % 8.9 % 0.0-10.0 7 Eo% 2.8 % 0.0-6.6 7 Bas% 0.7 % 0.0-1.1 7 Neut# 6.04 K/uL 1.8-7.0 7 Lymph # 1.92 K/uL 1.0-4.0 7 [place] # 0.81 K/uL High 0.0-0.8 7 Eos [...] 07/15/2016 WBC # Bld Auto 8.8 3.4-10.5 Anion Gap SerPl-sCnc 07/15/2016 Anion Gap SerPl-sCnc [...] 14 Lymph % 27.7 % 17.0-56.0 14 [place] % 7.0 % 0.0-10.0 14 Eo% 1.5 % 0.0-5.0 14 Bas% 0.6 % 0.1-1.0 14 Neut# 5.54 K/uL 1.8-7.0 14 Lymph # 2.43 K/uL 1.8-7.0 14 [place] # 0.61 K/uL 0.0-0.8 14 Eos # 0.13 K/uL 0.0-0.5 14 Baso # 0.05 K/uL Low 0.1-0.2 14 BUN SerPl-mCnc 07/15/2016 BUN SerPl-mCnc 15 7-18 Basophils # Bld Auto 07/15/2016 Basophils # [...] NFr 1.5 0.0-5.0 Bld Auto Bld Auto Calcium SerPl-mCnc 07/15/2016 Calcium SerPl-mCnc 9.2 8.5-10.1 Chloride SerPl-sCnc 07/15/2016 Chloride SerPl-sCnc 107 98-107 Creat SerPl-mCnc 07/15/2016 Creat SerPl-mCnc 1.2 0.6-1.3 Eosinophil # Bld Auto 07/15/2016 Eosinophil # Bld Auto 0.13 0.0-0.5 Free Thyroxine 06/26/2016 Free Thyroxine 1.21 0.76-1.46 Thyroid Stimulating 06/26/2016 Thyroid Stimulating 1.99 0.30-4.20 Hormone (TSH) Hormone (TSH) Laboratory test 06/26/2016 Thyroid Stim Hormone 1.99 uIU/mL 0.30-4.20 16 finding Free T4 1.21 ng/dL 0.76-1.46 16 Laboratory test finding 04/08/2016 Lipase 81 U/L 73-393 17 Laboratory test finding 04/08/2016 Alanine Aminotransferase 34 12-78 (Alt/SGPT) Albumin/Globulin Ratio 1.1 Total Bilirubin 0.7 0.2-1.0 Aspartate Amino Transf 04/08/2016 Aspartate Amino Transf 23 15-37 (Ast/Sgot) (Ast/Sgot) Comprehensive Metabolic 04/08/2016 Glucose 89 mg/dL 74-106 17 Panel BUN 16 mg/dL 7-18 17 Creatinine 1.3 mg/dL 0.6-1.3 17 Glom Filtration Rate, Estimate >60 mL/min >60 17 If >60 mL/min >60 17, 18 BUN/Creat 12.3 ratio 17 Sodium 140 mmol/L [...] 17 Lymph % 21.5 % 17.0-56.0 17 [place] % 6.6 % 0.0-10.0 17 Eo% 1.2 % 0.0-5.0 17 Bas% 0.6 % 0.1-1.0 17 Neut# 5.99 K/uL 1.8-7.0 17 Lymph # 1.84 K/uL 1.8-7.0 17 [place] # 0.56 K/uL 0.0-0.8 17 Eos # 0.10 K/uL 0.0-0.5 17 Baso # 0.05 K/uL Low 0.1-0.2 17 Urine Glucose (Ua) 04/08/2016 Urine Glucose (Ua) Negative Negative Laboratory test finding 04/08/2016 Urine Bilirubin Negative Negative Urine Ketones Negative Negative Urine Leukocyte Esterase Negative Negative Urine Nitrite Negative Negative Urine Protein Negative Negative Urine Urobilinogen 0.2 0.2-1.0 Urine Screen 04/08/2016 Urine Color DK YELLOW Yellow 17 Urine Clarity CLEAR Clear 17 Urine Glucose - Dipstick NEGATIVE mg/dL Negative 17 Urine Bilirubin - Dipstick NEGATIVE Negative 17 Urine Ketone NEGATIVE mg/dL Negative 17 Urine Specific [place] 1.025 1.010-1.030 17 Urine Blood NEGATIVE Negative 17 Urine PH 6.0 Low 6.5-7.5 17 Urine Protein - Dipstick NEGATIVE mg/dL Negative 17 Urine Urobilinogen - Dipstick 0.2 E.U./dL 0.2-1.0 17 Urine Nitrite - Dipstick NEGATIVE Negative 17 Urine Leuk Esterase NEGATIVE Negative 17 Source: URINE, CLEAN CAT <SEE 17, 19 NOTE> Protime 04/08/2015 Protime 17.9 seconds High 12.0-14.4 [...] 33.0-73.0 Lymph % 16.3 % Low 17.0-56.0 [place] % 9.3 % 0.0-10.0 Eo% 4.5 % 0.0-5.0 Bas% 0.8 % 0.1-1.0 Neut# 5.88 K/uL 1.8-7.0 Lymph # 1.39 K/uL Low 1.8-7.0 [place] # 0.79 K/uL 0.0-0.8 Eos # 0.38 [...] U/L 12-78 Alkaline Phosphatase 99 U/L 45-117 Laboratory test finding 03/15/2015 Basophils # (Auto) [...] 34 LDL-Cholesterol 69 mg/dL < 100 35 CBC W/Automated Diff 03/15/2015 White Blood Count [...] % 33.0-73.0 Lymph % 20.2 % 17.0-56.0 [place] % 10.0 % 0.0-10.0 Eo% 3.7 % 0.0-5.0 Bas% 0.6 % 0.1-1.0 Neut# 6.85 K/uL 1.8-7.0 Lymph # 2.11 K/uL 1.8-7.0 [place] # 1.04 K/uL High 0.0-0.8 Eos # 0.39 K/uL 0.0-0.5 Baso # 0.06 K/uL Low 0.1-0.2 1 I48.1 I10 Z68.44 E03.9 2 Note: [...] for more aggressive treatment of glycemia. The [place] [employer] recommends that a primary goal [...] for more aggressive treatment of glycemia. The [place] [employer] recommends that a primary goal [...] E03.9 17 PAIN ON LEFT SIDE 18 Note: Persistent reduction for 3 months or more in an eGFR <60 mL/min/1.73 m2 defines CKD. Patients with eGFR values >/=60 mL/min/1.73 m2 may also have CKD if evidence of persistent proteinuria is present. The original MDRD equation for estimated GFR is not valid for patients less than 18 years of age. Additional information may be found at www.kdoqi.org. 19 URINE, CLEAN CATCH 20 THERAPEUTIC INR RANGE: 2.0 - 3.0 [...] Date CPT Code Description Status Comment 11/01/2017 33374 Scanning Computerized Completed Ophthalmic Diagnostic Imaging, Posterior 11/01/2017 03493 Visual Field Exam Extended, Completed Unilateral Or Bilateral 11/01/2017 84737 Eye Exam Est Patient Completed Comprehensive 10/14/2016 62615 Eye Exam Est Patient Completed Comprehensive 10/04/2015 10359 Eye Exam New Patient Completed Comprehensive 09/21/2012 Colonoscopy Completed Document: 09/21/12 - Operative Report-Colonoscopy 03/09/2012 73565 Echocardiogram Complete Completed 03/09/2012 84845 EKG Interpretation And Report Completed Only Encounters Type Date Location Provider CPT E/M Dx Office Visit 12/02/2017 2:00[place] [address] K43.9 I48.1 Z68.44 Office Visit 09/23/2017 10:15a Primary Care Office Quin Porter, [facility] 23583 I10 Z86.718 I48.1 M62.830 E03.9 Z68.44 Office Visit 07/19/2017 2:30p Primary Care Office Quin Porter, [facility] 11026 J20.9 Office Visit 05/31/2017 9:30a Primary Care Office Quin Porter, [facility] 27250 I10 Z68.44 Office Visit 04/21/2017 9:30a Primary Care Office Quin Porter, [facility] 57348 Z23 M62.830 Z23 Office Visit 03/30/2017 10:45a Primary Care Office Quin Porter, [facility] 78661 I10 B37.9 E03.9 Office Visit 01/29/2017 10:00a Primary Care Office Quin Porter, 62265 I10 [facility] Office Visit 09/15/2016 10:15a Primary Care Office Quin Porter, 64357 M76.61 [facility] E66.9 Z68.42 Office Visit 07/29/2016 10:15a Primary Care Office Quin Porter, 04147 Z86.718 [facility] Office Visit 07/15/2016 11:00a Primary Care Office Quin Porter, 40303 K43.9 [facility] Z01.818 I48.1 I10 E66.9 G24.01 F41.9 Z86.718 Office Visit 06/26/2016 2:15p Primary Care Office Quin Porter, [facility] 43463 I10 E03.9 Office Visit 05/15/2016 10:45a Primary Care Office Quin Porter, [facility] 73017 I10 E03.9 E66.9 Z23 Office Visit 03/02/2016 2:00p Primary Care Office Quin Porter, 05001 S90.822A [facility] Office Visit 02/13/2016 10:30a Primary Care Office Quin Porter, 47778 I10 [facility] I48.1 M72.2 M25.572 E66.2 Office Visit 12/03/2015 2:00p Primary Care Office Quin Porter, [facility] 58340 E66.9 I48.1 I10 Office Visit 11/07/2015 11:15a Primary Care Office Quin Porter, [facility] 57505 E66.9 K43.2 I48.1 Office Visit 09/13/2015 10:00a Primary Care Office Quin Porter, [facility] 00960 J06.9 N39.42 I10 E66.9 Office Visit 07/03/2015 8:15a Surgical Office Perico Nicholas Renan, 31898 E66.8 Divya K43.2 I48.91 Office Visit 06/20/2015 10:00a Primary Care Office Quin Porter, [facility] 98561 J06.9 R05 Z23 K46.9 Office Visit 04/16/2015 10:15a Primary Care Office Quin Porter, [facility] 18309 698.8 311 427.31 Office Visit 03/11/2015 9:30a Primary Care Office Quin Porter, 13401 919.4 [facility] Office Visit 03/05/2015 10:00a Primary Care Office Akosua Eubanks M.D. 60744 427.31 786.05 V70.0 278.03 244.8 Office Visit 03/31/2012 2:51p Cardiology Office Anmol Ruiz, 11591 786.05 Divya, [facility] Office Visit 03/09/2012 3:57p [place]iology [place] [address] 427.31 Plan of Care Future Appointment(s):12/20/2017 1:00 pm - Vlad Wilkes MD,FACS at Surgical [id number]/04/2018 10:30 am - Bonifacio Ferreira MD at Ophthalmology
[2018-01-07 18:29] VITALS: BP 143/79
--- NOTE | 2018-01-07 18:52 | UC ---
Back Pain HPI - HPI Summary HPI Summary: 42 y/o male presents to the urgent care c/o of RT side lower back pain for the past 4 days. Pt reports he has back issues due to his weight. However, this time he was stretching and he felt a "snap". Pain 6/10, sharp w/ certain movements and is localized on the RT lower side w/o any radiation to the lower extremities. Pt has taken Tylenol PO to alleviate symptoms. Pt denies saddle anesthesia, urinary symptoms, urinary or fecal incontinence, numbness or tingling sensation over the lower extremities, fever, SOB, chest pain, abdominal pain, N/V/D - History of Current Complaint Chief Complaint: UCBackPain Stated Complaint: BACK PAIN Time Seen by Provider: 01/07/18 18:47 Hx Obtained From: Patient Onset/Duration: Gradual Onset, Lasting Days - 4 days, Still Present Timing: Intermittent Severity Initially: Moderate Severity Currently: Moderate Pain Intensity: 6 Pain Scale Used: 0-10 Numeric Back Pain: Is Discrete @ - RT side of lower back Aggravating Factor(s): Movement Alleviating Factor(s): Rest, OTC Meds Associated Signs And Symptoms: Positive: Negative. Negative: Swelling, Redness , Bruising, Fever, Weakness, Numbness, Tingling, Abdominal Pain, Flank Pain, Bladder Incontinence, Bowel Incontinence, Pain with Weight Bearing - Risk Factors AAA Risk Factors: Negative TAD Risk Factors: Negative Cauda Equina Risk Factors: Negative Epidural Abscess Risk Factors: Negative - Allergies/Home Medications Allergies/Adverse Reactions: Allergies Allergy/AdvReac Type Severity Reaction Status Date / Time diphenhydramine Allergy Rash Verified 01/07/18 18:18 [From Benadryl] Penicillins Allergy Rash Verified 01/07/18 18:18 saliva substitute Allergy Hives Verified 01/07/18 18:18 combination no.2 [From Caphosol] PMH/Surg Hx/FS Hx/Imm Hx Previously Healthy: Yes Endocrine History: Hypothyroidism Cardiovascular History: Hypertension Other Respiratory History: sleep apnea Psychological History: Depression - Surgical History Surgical History: Yes Surgery Procedure, Year, and Place: HERNIA REPAIR. APPY. TRACHEOSTOMY - Family History Known Family History: Positive: Hypertension, Diabetes, Other Family History: hypothyrodism - Social History Occupation: Disabled Lives: With Family Alcohol Use: Rare Substance Use Type: None Smoking Status (MU): Former Smoker When Did the Patient Quit Smoking/Using Tobacco: 2013 Household Exposure Type: Cigarettes Review of Systems Constitutional: Negative Skin: Negative Eyes: Negative ENT: Negative Respiratory: Negative Cardiovascular: Negative Gastrointestinal: Negative Genitourinary: Negative Motor: Negative Neurovascular: Negative Musculoskeletal: Decreased ROM, Other: - RT lower back pain Neurological: Negative Psychological: Negative Is Patient Immunocompromised?: No All Other Systems Reviewed And Are Negative: Yes Physical Exam - Summary Physical Exam Summary: Vital Signs Reviewed: Yes Appearance: Well-Appearing, Well-Nourished, morbid obese male siting in his wheelchair comfortably w/o any apparent distress. Eyes: Positive: Conjunctiva Clear - PERRLA, EOMI. ENT: Positive: Normal ENT inspection, Hearing grossly normal, Pharynx normal, TMs normal, Uvula midline Neck: Positive: Supple, Nontender, No Lymphadenopathy Respiratory: Positive: Chest non-tender, Lungs clear, Normal breath sounds, No respiratory distress Cardiovascular: Positive: RRR, No Murmur, Pulses Normal, Brisk Capillary Refill Abdomen Description: Positive: Nontender, No Organomegaly, Soft. Negative: CVA Tenderness (R), CVA Tenderness (L) Bowel Sounds: Positive: Present Musculoskeletal: Positive: Strength Intact, BACK: Patient uses a wheel chair to move due to his weight. Pt is able to stand w/o any difficulty. However physical exam was performed while pt is sitting on his wheelchair. No signs of trauma, No masses palpated. Point tenderness at he level of L1-L3 and Rt side paraspinal muscle tenderness and spasm at the same level, No CVAT, no flank ecchymosis . No sacroiliac notch tenderness, No saddle anesthesia.ROM: limited due to pain and obesity, Straight Leg Raise:unable to perform negative. Patellar reflexes: brisk, symmetric Muscle strength lower extremities. Dorsiflexion/ plantar flexion of ankles. . Lower extremities: Femoral, popliteal , posterior tibial, and dorsalis pedis pulses WNL. Pt refuse rectal exam Neurological: Positive: Alert, Muscle Tone Normal Psychological Exam: Normal Skin Exam: Normal Triage Information Reviewed: Yes Vital Signs: Initial Vital Signs Temp 97.5 F 01/07/18 18:21 Pulse 78 01/07/18 18:21 Resp 19 01/07/18 18:21 BP 143/79 01/07/18 18:21 Pulse Ox 98 01/07/18 18:21 Back Pain Course/Dx - Course Course Of Treatment: 42 y/o male presents to the urgent care c/o of RT side lower back pain for the past 4 days. Pt reports he has back issues due to his weight. However, this time he was stretching and he felt a "snap". Pain 6/10 , sharp w/ certain movements and is localized on the RT lower side w/o any radiation to the lower extremities. Pt has taken Tylenol PO to alleviate symptoms. Pt denies saddle anesthesia, urinary symptoms, urinary or fecal incontinence, numbness or tingling sensation over the lower extremities, fever, SOB, chest pain, abdominal pain, N/V/D. Hx obtained. Pt w/ RT side paraspinal muscle tenderness and spasm at the level of L1-L3 on examination. Pt w/ probably a back strain due to morbid obesity. Lumbosacral X-ray ordered to compared w/ the one done last years on 03/2018 to see if there any change in his DDD at LI-L2 since Pt heard a "snap". Lumbosacral X-ray was no performed due to Pt's weight. Radiologist Tech. stated Pt has gained more weight and now the machine can't penatrate him. Pt Rx Flexeril PO, Tylenol PO and Prednisone to alleviate symptoms. Pt advised to wear a back support and avoid heavy lifting and f/u w/ Orhtopedic DR Ryan for further management. D/C instructions expalined. Pt understood and aggreed w/ plan of care. - Differential Dx/Diagnosis Differential Diagnosis/HQI/PQRI: Cauda Equina Syndrome, Compressive Cord Syndrome, Herniated Disc, Renal Colic, Strain, Sprain Provider Diagnoses: 1- Acute lower back strain. 2-Back spasm. 3-Uncontrolled HTN Discharge - Sign-Out/Discharge Documenting (check all that apply): Discharge/Admit/Transfer - D/C home - Discharge Plan Condition: Stable Disposition: HOME Prescriptions: Acetaminophen TAB* [Tylenol TAB*] 650 mg PO Q6H PRN #30 tab PRN Reason: Pain Cyclobenzaprine TAB* [Flexeril 10 MG TAB*] 10 mg PO TID PRN #21 tab PRN Reason: Spasms - Back predniSONE TAB* [Deltasone 20 MG TAB*] 20 mg PO DAILY #11 tab Patient Education Materials: Low Back Strain (ED), Low-Sodium Diet (ED), Muscle Spasm (ED), Degenerative Disc Disease (ED) Referrals: Quin Porter PA [Primary Care Provider] - 1 Week Ailin Ryan MD [Medical Doctor] - 1 Week Additional Instructions: 1- Please take Tylenol q6-8hrs PO as directed after meals for pain. 2- Take Flexeril PO as directed for muscle spasm. Please do not drive while taking the medication. 3- TAke Prednisone PO taper dose to alleviate symptoms. Avoid strenuous exercise of heavy lifting. 4- Please follow up with Orthopedic Dr Ryan or your PCP in 1 week if not improvement of symptoms, for further management. 5-Your BP is elevated today. please decrease salt in your diet, monitor BP and if it continues to be elevated please f/u with your PCP for further management - Billing Disposition and Condition Condition: STABLE Disposition: HOME
== END 2018-01-07 19:45 | disposition home or self-care (01) ==
LOC: UCCORT 18:07
DX: S39.012A Strain of muscle, fascia and tendon of lower back, initial encounter (principal); X50.9XXA Other and unspecified overexertion or strenuous movements or postures, initial encounter; Y93.9 Activity, unspecified; Y92.9 Unspecified place or not applicable; M62.830 Muscle spasm of back; E03.9 Hypothyroidism, unspecified; I10 Essential (primary) hypertension; G47.30 Sleep apnea, unspecified; F32.9 Major depressive disorder, single episode, unspecified; Z88.0 Allergy status to penicillin; Z88.8 Allergy status to other drugs, medicaments and biological substances; Z87.891 Personal history of nicotine dependence
CPT/HCPCS: 99212; G0463

== ENCOUNTER 2020-12-06 11:31 | Inpatient (IN) ==
[2020-12-06] MEDS ORDERED: NS 0.9% 1000 ml BAG 1,000 ML IV ONE (11:47)
[2020-12-06] MEDS ORDERED: Piperacillin/Tazobac ADVAN 3.375 GM in NS 0.9% 100 ml BAG 100 ML IV ONE (11:47)
[2020-12-06] MEDS ORDERED: Morphine 4 MG/ML VIAL (1 ml) IV ONE (12:44)
[2020-12-06 13:04] LABS: ABS Basophils 0.1 10^3/ul (0-0.2); ABS Eosinophils 0.3 10^3/ul (0-0.6); ABS Lymphocytes 1.2 10^3/ul (1.0-4.8); ABS Monocytes 0.7 10^3/ul (0-0.8); ABS Neutrophils 5.5 10^3/ul (1.5-7.7); Eosinophil % 3.5 %; Hematocrit 38 % (42-52); Hemoglobin 12.4 g/dL (14.0-18.0); Lymphocyte % 15.7 %; Mean Corpuscular HGB Conc 33 g/dL (31-36); Mean Corpuscular Hemoglobin 33 pg (27-31); Mean Corpuscular Volume 100 fL (80-94); Mean Platelet Volume 8.9 fL (7.4-10.4); Platelet Count 265 10^3/uL (150-450); Red Blood Count 3.75 10^6 /uL (4.18-5.48); Red Cell Distribution Width 19 % (10-15); White Blood Count 7.8 10^3/uL (3.5-10.8)
[2020-12-06 13:13] LABS: ALT 18 U/L (7-52); AST 17 U/L (13-39); Albumin 3.5 g/dL (3.2-5.2); Alkaline Phosphatase 90 U/L (34-104); Anion Gap 9 mmol/L (2-11); Blood Urea Nitrogen 17 mg/dL (6-24); C Reactive Protein 22.41 mg/L (<8.01); CO2 Carbon Dioxide 24 mmol/L (22-32); Calcium 8.8 mg/dL (8.6-10.3); Chloride 105 mmol/L (101-111); EGFR African American 96.2 (>60); EGFR Non-African American 79.5 (>60); Globulin 3.5 g/dL (2-4); Glucose 86 mg/dL (70-100); Lipase < 10 U/L (11.0-82.0); Magnesium 1.9 mg/dL (1.9-2.7); Potassium 3.4 mmol/L (3.5-5.0); Sodium 138 mmol/L (135-145)
[2020-12-06] MEDS ORDERED: cefTRIAXone 2 GM ADDV.VIAL 2 GM in NS 0.9% 100 ml BAG 100 ML IV SCH (16:00)
[2020-12-06 16:19] LABS: TSH Ultra Thyroid Stim Horm 4.19 mcIU/mL (0.34-5.60)
[2020-12-06] MEDS: cefTRIAXone 2 GM ADDV.VIAL 2 GM in NS 0.9% 100 ml BAG 100 ML IV SCH (22:32)
[2020-12-07 05:56] LABS: Hematocrit 39 % (42-52); Hemoglobin 12.7 g/dL (14.0-18.0); Mean Corpuscular HGB Conc 33 g/dL (31-36); Mean Corpuscular Hemoglobin 33 pg (27-31); Mean Corpuscular Volume 101 fL (80-94); Mean Platelet Volume 8.7 fL (7.4-10.4); Platelet Count 291 10^3/uL (150-450); Red Blood Count 3.83 10^6 /uL (4.18-5.48); Red Cell Distribution Width 19 % (10-15); White Blood Count 8.5 10^3/uL (3.5-10.8)
[2020-12-07 06:21] LABS: Calcium 8.5 mg/dL (8.6-10.3); EGFR African American 74.6 (>60); EGFR Non-African American 61.6 (>60); Potassium 3.6 mmol/L (3.5-5.0)
[2020-12-07] MEDS ORDERED: Vancomycin 2,000 MG in NS 0.9% 500 ml BAG 500 ML IVPB ONE (06:30)
[2020-12-07] MEDS ORDERED: Cholecalciferol (VIT D3) 1,000 unit TAB PO SCH (09:00)
[2020-12-07] MEDS: Cholecalciferol (VIT D3) 1,000 unit TAB PO SCH (09:05)
[2020-12-07] MEDS: Multivitamins/Minerals TAB PO SCH (09:05)
[2020-12-07] MEDS ORDERED: Vancomycin per Pharmacy 1 EA NOTE FOLLOW UP PRN (10:09)
[2020-12-07] MEDS: Vancomycin 1000 MG in NS 0.9% 250 ML IVPB SCH ×3 (12:59→23:36)
[2020-12-07] MEDS: NS 0.9% 1000 ml BAG 1,000 ML IV SCH (15:41)
[2020-12-07] MEDS: Nystatin TOP POWDER 15 GM BTL TOPICAL SCH ×2 (15:56→20:51)
[2020-12-07] MEDS: cefTRIAXone 2 GM ADDV.VIAL 2 GM in NS 0.9% 100 ml BAG 100 ML IV SCH (20:51)
[2020-12-08] MEDS ORDERED: Vancomycin Trough Check NOTE FOLLOW UP ONE (06:00)
[2020-12-08] MEDS: NS 0.9% 1000 ml BAG 1,000 ML IV SCH (08:21)
[2020-12-08] MEDS: Multivitamins/Minerals TAB PO SCH (08:22)
[2020-12-08] MEDS: Cholecalciferol (VIT D3) 1,000 unit TAB PO SCH (08:22)
[2020-12-08] MEDS: Nystatin TOP POWDER 15 GM BTL TOPICAL SCH ×3 (08:24→20:57)
[2020-12-08 08:56] LABS: Albumin 3.3 g/dL (3.2-5.2); C Reactive Protein 57.76 mg/L (<8.01); Calcium 8.4 mg/dL (8.6-10.3); EGFR African American 103.3 (>60); EGFR Non-African American 85.3 (>60); Globulin 3.2 g/dL (2-4); Magnesium 1.8 mg/dL (1.9-2.7); Potassium 3.8 mmol/L (3.5-5.0); Total Bilirubin 0.7 mg/dL (0.2-1.0); Total Protein 6.5 g/dL (6.4-8.9)
[2020-12-08 08:58] LABS: Vancomycin Trough 14.7 mcg/mL
[2020-12-08] MEDS: Vancomycin 1000 MG in NS 0.9% 250 ML IVPB SCH ×4 (09:05→23:21)
[2020-12-08] MEDS: cefTRIAXone 2 GM ADDV.VIAL 2 GM in NS 0.9% 100 ml BAG 100 ML IV SCH (20:57)
[2020-12-09] MEDS: Vancomycin 1000 MG in NS 0.9% 250 ML IVPB SCH ×3 (05:51→18:20)
[2020-12-09 06:23] LABS: ABS Eosinophils 0.7 10^3/ul (0-0.6); ABS Lymphocytes 0.4 10^3/ul (1.0-4.8); ABS Monocytes 0.5 10^3/ul (0-0.8); ABS Neutrophils 6.7 10^3/ul (1.5-7.7); Eosinophil % 8.4 %; Hematocrit 37 % (42-52); Hemoglobin 12.3 g/dL (14.0-18.0); Mean Corpuscular HGB Conc 34 g/dL (31-36); Mean Corpuscular Hemoglobin 33 pg (27-31); Mean Corpuscular Volume 99 fL (80-94); Mean Platelet Volume 8.3 fL (7.4-10.4); Platelet Count 265 10^3/uL (150-450); Red Blood Count 3.69 10^6 /uL (4.18-5.48); Red Cell Distribution Width 19 % (10-15); White Blood Count 8.3 10^3/uL (3.5-10.8)
[2020-12-09 06:46] LABS: Albumin 3.4 g/dL (3.2-5.2); C Reactive Protein 72.3 mg/L (<8.01); Calcium 8.4 mg/dL (8.6-10.3); EGFR Non-African American 98.4 (>60); Globulin 3.3 g/dL (2-4); Magnesium 1.8 mg/dL (1.9-2.7); Potassium 4.3 mmol/L (3.5-5.0); Total Bilirubin 0.6 mg/dL (0.2-1.0); Total Protein 6.7 g/dL (6.4-8.9)
[2020-12-09] MEDS: Cholecalciferol (VIT D3) 1,000 unit TAB PO SCH (10:08)
[2020-12-09] MEDS: Multivitamins/Minerals TAB PO SCH (10:08)
[2020-12-09] MEDS: Nystatin TOP POWDER 15 GM BTL TOPICAL SCH ×3 (10:10→20:09)
[2020-12-09] MEDS ORDERED: Polyethylene Glycol 3350 17 GM PACKET PO PRN (19:56)
[2020-12-09] MEDS: cefTRIAXone 2 GM ADDV.VIAL 2 GM in NS 0.9% 100 ml BAG 100 ML IV SCH (20:09)
[2020-12-10] MEDS: Senna TAB 8.6 mg TAB PO PRN (00:01)
[2020-12-10] MEDS: Vancomycin 1000 MG in NS 0.9% 250 ML IVPB SCH ×4 (00:01→18:14)
[2020-12-10] MEDS ORDERED: Vancomycin Trough Check NOTE FOLLOW UP ONE (05:30)
[2020-12-10 07:10] LABS: EGFR African American 125.9 (>60); EGFR Non-African American 104.1 (>60)
[2020-12-10 07:16] LABS: ABS Eosinophils 0.8 10^3/ul (0-0.6); ABS Lymphocytes 0.6 10^3/ul (1.0-4.8); ABS Monocytes 0.8 10^3/ul (0-0.8); ABS Neutrophils 5.5 10^3/ul (1.5-7.7); Eosinophil % 10.8 %; Hematocrit 35 % (42-52); Hemoglobin 11.7 g/dL (14.0-18.0); Lymphocyte % 7.9 %; Mean Corpuscular HGB Conc 33 g/dL (31-36); Mean Corpuscular Hemoglobin 33 pg (27-31); Mean Corpuscular Volume 100 fL (80-94); Mean Platelet Volume 8.7 fL (7.4-10.4); Nucleated Red Blood Cells % 0.1; Platelet Count 272 10^3/uL (150-450); Red Blood Count 3.53 10^6 /uL (4.18-5.48); Red Cell Distribution Width 19 % (10-15); White Blood Count 7.7 10^3/uL (3.5-10.8)
[2020-12-10 07:38] LABS: Calcium 8.4 mg/dL (8.6-10.3); Potassium 4.1 mmol/L (3.5-5.0)
[2020-12-10 07:44] LABS: EGFR African American 125.9 (>60); EGFR Non-African American 104.1 (>60)
[2020-12-10] MEDS: Cholecalciferol (VIT D3) 1,000 unit TAB PO SCH (11:18)
[2020-12-10] MEDS: Multivitamins/Minerals TAB PO SCH (11:18)
[2020-12-10] MEDS: Nystatin TOP POWDER 15 GM BTL TOPICAL SCH ×3 (11:19→22:42)
[2020-12-10] MEDS: cefTRIAXone 2 GM ADDV.VIAL 2 GM in NS 0.9% 100 ml BAG 100 ML IV SCH (22:42)
[2020-12-11] MEDS: Vancomycin 1000 MG in NS 0.9% 250 ML IVPB SCH ×4 (00:38→20:28)
[2020-12-11 05:08] LABS: ABS Eosinophils 0.9 10^3/ul (0-0.6); ABS Lymphocytes 1.4 10^3/ul (1.0-4.8); ABS Monocytes 0.9 10^3/ul (0-0.8); ABS Neutrophils 5.6 10^3/ul (1.5-7.7); Eosinophil % 10.2 %; Hematocrit 38 % (42-52); Hemoglobin 12.5 g/dL (14.0-18.0); Lymphocyte % 15.3 %; Mean Corpuscular HGB Conc 33 g/dL (31-36); Mean Corpuscular Hemoglobin 34 pg (27-31); Mean Corpuscular Volume 102 fL (80-94); Mean Platelet Volume 8.3 fL (7.4-10.4); Platelet Count 299 10^3/uL (150-450); Red Blood Count 3.72 10^6 /uL (4.18-5.48); Red Cell Distribution Width 19 % (10-15); White Blood Count 8.9 10^3/uL (3.5-10.8)
[2020-12-11 05:27] LABS: Calcium 8.5 mg/dL (8.6-10.3); EGFR African American 117.4 (>60); Potassium 4.2 mmol/L (3.5-5.0)
[2020-12-11] MEDS ORDERED: Flumazenil 0.5 mg/5 ml 0.1 MG/ML 5 ml VIAL ONE (09:32)
[2020-12-11] MEDS ORDERED: Midazolam 5 mg/5 ml VIAL 1 mg/ml 5 ml VIAL (5 mg) ONE ×2 (09:32→10:13)
[2020-12-11] MEDS ORDERED: Lidocaine 2% w/ EPI 1:200,000 MPF 20 ML SDV VIAL ONE (09:38)
[2020-12-11] MEDS ORDERED: Lidocaine 2% PF 10 ML AMP ONE (09:40)
[2020-12-11] MEDS ORDERED: Naloxone 0.4 mg VIAL 0.4 mg/ml 1 ml VIAL IV PRN (12:12)
[2020-12-11] MEDS: Nystatin TOP POWDER 15 GM BTL TOPICAL SCH ×3 (14:10→21:06)
[2020-12-11] MEDS: Multivitamins/Minerals TAB PO SCH (15:28)
[2020-12-11] MEDS: Cholecalciferol (VIT D3) 1,000 unit TAB PO SCH (15:29)
[2020-12-11] MEDS ORDERED: Furosemide 40 mg/4 ml IV VIAL IV ONE (17:22)
[2020-12-12] MEDS: Vancomycin 1000 MG in NS 0.9% 250 ML IVPB SCH ×4 (02:33→20:41)
[2020-12-12 05:18] LABS: EGFR African American 127.8 (>60); EGFR Non-African American 105.6 (>60)
[2020-12-12] MEDS: Cholecalciferol (VIT D3) 1,000 unit TAB PO SCH (08:16)
[2020-12-12] MEDS: Nystatin TOP POWDER 15 GM BTL TOPICAL SCH ×3 (08:20→20:42)
[2020-12-12] MEDS: Multivitamins/Minerals TAB PO SCH (08:35)
[2020-12-12] MEDS ORDERED: Buffered Lidocaine 1% SYRIN 1 ml INTRADERM ONE ×2 (11:21→14:46)
[2020-12-12] MEDS ORDERED: Vancomycin Trough Check NOTE FOLLOW UP ONE (13:30)
[2020-12-12] MEDS: Furosemide 40 mg/4 ml IV VIAL IV SLOW PU SCH ×2 (14:28→18:09)
[2020-12-13] MEDS: Vancomycin 1000 MG in NS 0.9% 250 ML IVPB SCH ×3 (01:51→15:10)
[2020-12-13] MEDS: Nystatin TOP POWDER 15 GM BTL TOPICAL SCH ×3 (07:53→20:42)
[2020-12-13] MEDS: Multivitamins/Minerals TAB PO SCH (08:01)
[2020-12-13] MEDS: Furosemide 40 mg/4 ml IV VIAL IV SLOW PU SCH (08:04)
[2020-12-13] MEDS: Cholecalciferol (VIT D3) 1,000 unit TAB PO SCH (08:04)
[2020-12-13 09:44] LABS: ABS Basophils 0.1 10^3/ul (0-0.2); ABS Eosinophils 1.3 10^3/ul (0-0.6); ABS Lymphocytes 1.7 10^3/ul (1.0-4.8); ABS Monocytes 0.6 10^3/ul (0-0.8); Eosinophil % 12.9 %; Hematocrit 39 % (42-52); Hemoglobin 12.6 g/dL (14.0-18.0); Lymphocyte % 17.7 %; Mean Corpuscular HGB Conc 32 g/dL (31-36); Mean Corpuscular Hemoglobin 33 pg (27-31); Mean Corpuscular Volume 101 fL (80-94); Mean Platelet Volume 9.2 fL (7.4-10.4); Platelet Count 265 10^3/uL (150-450); Red Blood Count 3.86 10^6 /uL (4.18-5.48); Red Cell Distribution Width 18 % (10-15); White Blood Count 9.7 10^3/uL (3.5-10.8)
[2020-12-13 10:03] LABS: Calcium 8.9 mg/dL (8.6-10.3); EGFR African American 125.9 (>60); EGFR Non-African American 104.1 (>60); Potassium 3.9 mmol/L (3.5-5.0)
[2020-12-13 21:12] LABS: Calcium 8.8 mg/dL (8.6-10.3); EGFR African American 127.8 (>60); EGFR Non-African American 105.6 (>60); Potassium 4.1 mmol/L (3.5-5.0)
[2020-12-14] MEDS ORDERED: Vancomycin Trough Check NOTE FOLLOW UP ONE (07:30)
[2020-12-14 08:45] LABS: Calcium 8.9 mg/dL (8.6-10.3); EGFR African American 117.4 (>60)
[2020-12-14] MEDS: Cholecalciferol (VIT D3) 1,000 unit TAB PO SCH (10:13)
[2020-12-14] MEDS: Multivitamins/Minerals TAB PO SCH (10:13)
[2020-12-14] MEDS: Nystatin TOP POWDER 15 GM BTL TOPICAL SCH ×3 (10:15→20:49)
[2020-12-14] MEDS: Vancomycin 1000 MG in NS 0.9% 250 ML IVPB SCH ×4 (11:26→17:37)
[2020-12-15] MEDS: Vancomycin 1000 MG in NS 0.9% 250 ML IVPB SCH ×3 (02:08→17:19)
[2020-12-15 05:27] LABS: ABS Basophils 0.1 10^3/ul (0-0.2); ABS Eosinophils 1.3 10^3/ul (0-0.6); ABS Monocytes 0.6 10^3/ul (0-0.8); Eosinophil % 13.4 %; Hematocrit 38 % (42-52); Hemoglobin 12.5 g/dL (14.0-18.0); Lymphocyte % 20.2 %; Mean Corpuscular HGB Conc 33 g/dL (31-36); Mean Corpuscular Hemoglobin 33 pg (27-31); Mean Corpuscular Volume 101 fL (80-94); Mean Platelet Volume 8.5 fL (7.4-10.4); Platelet Count 277 10^3/uL (150-450); Red Blood Count 3.79 10^6 /uL (4.18-5.48); Red Cell Distribution Width 18 % (10-15)
[2020-12-15] MEDS ORDERED: Furosemide 40 mg/4 ml IV VIAL IV ONE (08:00)
[2020-12-15 09:40] LABS: Calcium 8.9 mg/dL (8.6-10.3); EGFR African American 137.8 (>60); EGFR Non-African American 113.9 (>60); Potassium 4.2 mmol/L (3.5-5.0)
[2020-12-15] MEDS: Cholecalciferol (VIT D3) 1,000 unit TAB PO SCH (11:18)
[2020-12-15] MEDS: Multivitamins/Minerals TAB PO SCH (11:19)
[2020-12-15] MEDS: Nystatin TOP POWDER 15 GM BTL TOPICAL SCH ×3 (11:21→22:10)
[2020-12-15] MEDS: Senna TAB 8.6 mg TAB PO PRN (20:03)
[2020-12-15 20:30] LABS: Calcium 8.8 mg/dL (8.6-10.3); EGFR African American 109.9 (>60); EGFR Non-African American 90.8 (>60); Magnesium 1.8 mg/dL (1.9-2.7); Potassium 4.1 mmol/L (3.5-5.0)
[2020-12-16] MEDS: Vancomycin 1000 MG in NS 0.9% 250 ML IVPB SCH ×3 (01:56→17:58)
[2020-12-16 07:48] LABS: Calcium 8.8 mg/dL (8.6-10.3); EGFR African American 112.8 (>60); EGFR Non-African American 93.2 (>60); Magnesium 1.8 mg/dL (1.9-2.7)
[2020-12-16] MEDS: Nystatin TOP POWDER 15 GM BTL TOPICAL SCH ×2 (09:31→14:14)
[2020-12-16] MEDS: Cholecalciferol (VIT D3) 1,000 unit TAB PO SCH (09:31)
[2020-12-16] MEDS: Multivitamins/Minerals TAB PO SCH (09:31)
[2020-12-16 15:39] VITALS: BP 147/100
[2020-12-17] MEDS ORDERED: Vancomycin Trough Check NOTE FOLLOW UP ONE (09:30)
== END 2020-12-16 18:35 | disposition swing bed (61) | DRG 603 ==
LOC: ED 11:31 → MED 15:41
PROVIDERS: ADMIT Hospitalist; ATTEND Internal Medicine
PROC: O.CATEE (2020-12-11 08:45)

== ENCOUNTER 2020-12-16 18:36 | Inpatient (IN) ==
[2020-12-16] MEDS ORDERED: Polyethylene Glycol 3350 17 GM PACKET PO PRN (18:56)
[2020-12-16] MEDS ORDERED: Senna TAB 8.6 mg TAB PO PRN (18:56)
[2020-12-16] MEDS ORDERED: VANCOMYCIN PER PHARMACY FOLLOW UP SCH (19:00)
[2020-12-16] MEDS ORDERED: Vancomycin per Pharmacy 1 EA NOTE FOLLOW UP PRN (19:19)
[2020-12-16] MEDS: Nystatin TOP POWDER 15 GM BTL TOPICAL SCH (20:16)
[2020-12-17] MEDS: Vancomycin 1000 MG in NS 0.9% 250 ML IVPB SCH ×3 (02:21→17:43)
[2020-12-17 07:06] LABS: Calcium 8.8 mg/dL (8.6-10.3); EGFR African American 129.7 (>60); EGFR Non-African American 107.2 (>60); Potassium 3.7 mmol/L (3.5-5.0)
[2020-12-17] MEDS: Cholecalciferol (VIT D3) 1,000 unit TAB PO SCH (09:40)
[2020-12-17] MEDS: Multivitamins/Minerals TAB PO SCH (09:41)
[2020-12-17] MEDS: Nystatin TOP POWDER 15 GM BTL TOPICAL SCH ×3 (09:42→20:42)
[2020-12-17] MEDS ORDERED: Vancomycin Trough Check NOTE FOLLOW UP ONE (10:00)
[2020-12-18] MEDS: Vancomycin 1000 MG in NS 0.9% 250 ML IVPB SCH ×3 (02:06→17:57)
[2020-12-18] MEDS: Cholecalciferol (VIT D3) 1,000 unit TAB PO SCH (10:09)
[2020-12-18] MEDS: Multivitamins/Minerals TAB PO SCH (10:09)
[2020-12-18] MEDS: Nystatin TOP POWDER 15 GM BTL TOPICAL SCH ×3 (10:11→20:00)
[2020-12-19] MEDS: Vancomycin 1000 MG in NS 0.9% 250 ML IVPB SCH ×3 (02:10→21:59)
[2020-12-19] MEDS ORDERED: Vancomycin Trough Check NOTE FOLLOW UP ONE (10:00)
[2020-12-19] MEDS: Cholecalciferol (VIT D3) 1,000 unit TAB PO SCH (10:26)
[2020-12-19] MEDS: Multivitamins/Minerals TAB PO SCH (10:27)
[2020-12-19] MEDS: Nystatin TOP POWDER 15 GM BTL TOPICAL SCH ×3 (12:08→21:55)
[2020-12-20] MEDS: Vancomycin 1000 MG in NS 0.9% 250 ML IVPB SCH ×3 (05:50→22:43)
[2020-12-20] MEDS: Cholecalciferol (VIT D3) 1,000 unit TAB PO SCH (09:35)
[2020-12-20] MEDS: Multivitamins/Minerals TAB PO SCH (09:38)
[2020-12-20] MEDS: Nystatin TOP POWDER 15 GM BTL TOPICAL SCH ×3 (09:38→20:26)
[2020-12-21] MEDS: Multivitamins/Minerals TAB PO SCH (09:53)
[2020-12-21] MEDS: Cholecalciferol (VIT D3) 1,000 unit TAB PO SCH (09:53)
[2020-12-21] MEDS: Nystatin TOP POWDER 15 GM BTL TOPICAL SCH ×3 (09:54→20:58)
[2020-12-22] MEDS: Cholecalciferol (VIT D3) 1,000 unit TAB PO SCH (09:00)
[2020-12-22] MEDS: Nystatin TOP POWDER 15 GM BTL TOPICAL SCH ×3 (09:00→21:24)
[2020-12-22] MEDS: Multivitamins/Minerals TAB PO SCH (09:01)
[2020-12-23 07:56] VITALS: BP 127/87
[2020-12-23] MEDS: Cholecalciferol (VIT D3) 1,000 unit TAB PO SCH (08:51)
[2020-12-23] MEDS: Multivitamins/Minerals TAB PO SCH (08:51)
[2020-12-23] MEDS: Nystatin TOP POWDER 15 GM BTL TOPICAL SCH (11:58)
== END 2020-12-23 13:55 | disposition home or self-care (01) ==
LOC: MED 18:36
PROVIDERS: ADMIT Internal Medicine; ATTEND Student in an Organized Health Care Education/Training Program